=== PATIENT | female | born 1960 | race African-American/Black ===

== ENCOUNTER 2020-02-20 05:36 | Observation (INO) ==
[2020-02-20 06:04] LABS: Basophils # 0.1 10*3/uL (0.0-0.2); Basophils % 0.7 % (0.0-0.8); Eosinophils # 0.3 10*3/uL (0.0-0.87); Eosinophils % 3.5 % (0.00-10.9); Hematocrit 35.7 VOL% (35.7-47.0); Hemoglobin 11.1 GM/DL (12.0-16.0); Immature Granulocytes % 0.3 %; Immature Granulocytes Absolute 0.02 #; Lymphocytes # 1.9 10*3/uL (1.4-4.0); Lymphocytes % 26.8 % (21.3-54.2); Mean Corpuscular HGB Conc 31.1 GM/DL (32-36); Mean Platelet Volume 10.1 FL (9.6-12.0); Monocytes % 7.2 % (1.7-12.7); Neutrophils % 61.5 % (38.7-73.9); Platelet Count 226 T/CUMM (130-400); Red Blood Count 3.72 MC/CUMM (3.8-5.5); Red Cell Distribution Width 13.4 % (9.3-17.3); White Blood Count 7.1 T/CUMM (4-12)
[2020-02-20 06:14] LABS: PT Patient Result 10.8 SECS (9.8-11.9); Partial Thromboplastin Time 27.2 SECS (23.9-33.8)
[2020-02-20] MEDS ORDERED: hydrALAZINE 20 MG/1 ML VIAL IV STA (06:30)
[2020-02-20] MEDS ORDERED: FUROSEMIDE 40 MG/4 ML VIAL IV STA (06:30)
[2020-02-20 06:34] LABS: Albumin 2.9 G/DL (3.4-5.0); Bilirubin,Total 0.4 MG/DL (0.2-1.0); Calcium 8.2 MG/DL (8.5-10.1); Osmolality,Calculated 298.4 MOS/KG (273-304); Total Protein 6.6 G/DL (6.4-8.3)
[2020-02-20] MEDS ORDERED: GLUCAGON 1 MG VIAL IM PRN (08:17)
[2020-02-20] MEDS ORDERED: DEXTROSE 10% 250 ML BAG IV PRN ×2 (08:17→11:51)
[2020-02-20] MEDS ORDERED: ONDANSETRON 4 MG/2 ML VIAL IV PRN (08:17)
[2020-02-20] MEDS ORDERED: amLODIPine 5 MG TABLET PO SCH (09:00)
[2020-02-20] MEDS ORDERED: MAGNESIUM SULF RIDER 4 GM in PREMIX 1 EACH IV PRN (11:01)
[2020-02-20] MEDS ORDERED: MAGNESIUM SULF RIDER 2 GM in PREMIX 1 EACH IV PRN (11:01)
[2020-02-20] MEDS: carvediloL 25 MG TABLET PO SCH ×2 (11:17→22:09)
[2020-02-20] MEDS: ENALAPRIL 20 MG TABLET PO SCH (11:18)
[2020-02-20] MEDS: DOXAZOSIN 4 MG TABLET PO SCH (11:19)
[2020-02-20] MEDS: PANTOPRAZOLE 40 MG TABLET PO SCH (11:22)
[2020-02-20] MEDS ORDERED: DIGOXIN 0.25 MG TABLET PO SCH (13:00)
[2020-02-20] MEDS: INSULIN LISPRO 100 UNIT/ML SUBCUT SCH ×3 (13:21→20:46)
[2020-02-20 15:18] LABS: Apearance,Urine CLEAR (Clear); Bacteria,Urine Occasional /HPF (Few); Bilirubin,Urine Negative (Negative); Blood, Urine Small mg/dL (Negative); Glucose,Urine (UA) 50 mg/dL (Negative); Hyaline Casts,Urine 3 /LPF (0-3); Ketones,Urine Negative (Negative); Mucus,Urine Occasional /LPF (Occasional); Nitrite,Urine Positive (Negative); Protein,Urine 100 MG/DL; RBC,Urine 3 /HPF (0-4); Squamous Epithelial Cell,Urine Occasional /HPF (0-10); Urine Color Yellow (Yellow); Urine Specific Gravity 1.008 (1.001-1.035); Urine Urobilinogen < 2.0 EU/DL (0.2-1.0); WBC,Urine 17 /HPF (0-6)
[2020-02-20] MEDS: FUROSEMIDE 40 MG/4 ML VIAL IV SCH (16:44)
[2020-02-20] MEDS ORDERED: INSULIN GLARGINE 100 UNIT/ML SUBCUT SCH (21:00)
[2020-02-20] MEDS: SIMVASTATIN 40 MG TABLET PO SCH (22:09)
[2020-02-20] MEDS: INSULIN GLARGINE 100 UNIT/ML SUBCUT SCH (22:11)
[2020-02-21] MEDS: ZALEPLON 5 MG CAPSULE PO PRN (01:40)
[2020-02-21 05:23] LABS: Basophils % 0.5 % (0.0-0.8); Eosinophils # 0.2 10*3/uL (0.0-0.87); Eosinophils % 3.5 % (0.00-10.9); Hematocrit 31.9 VOL% (35.7-47.0); Hemoglobin 9.9 GM/DL (12.0-16.0); Immature Granulocytes % 0.3 %; Immature Granulocytes Absolute 0.02 #; Lymphocytes # 1.7 10*3/uL (1.4-4.0); Mean Corpuscular Volume 95.2 FL (87-102); Mean Platelet Volume 10.4 FL (9.6-12.0); Monocytes % 9.8 % (1.7-12.7); Neutrophils % 59.9 % (38.7-73.9); Platelet Count 211 T/CUMM (130-400); Red Blood Count 3.35 MC/CUMM (3.8-5.5); Red Cell Distribution Width 13.7 % (9.3-17.3); White Blood Count 6.6 T/CUMM (4-12)
[2020-02-21 05:48] LABS: Alanine Aminotransferase 42 U/L (13-56); Albumin 2.5 G/DL (3.4-5.0); Alkaline Phosphatase 110 U/L (45-117); Aspartate Amino Transferase 19 U/L (0-37); Bilirubin,Total < 0.39 MG/DL (0.2-1.0); Blood Urea Nitrogen 34 MG/DL (7-18); Estimated Glom Filtration Rate 69 ML/MIN; Glucose 84 MG/DL (74-106); Osmolality,Calculated 289.1 MOS/KG (273-304); Total Protein 6.3 G/DL (6.4-8.3)
[2020-02-21] MEDS: INSULIN LISPRO 100 UNIT/ML SUBCUT SCH ×4 (08:42→22:01)
[2020-02-21] MEDS: cefTRIAXone 1,000 MG in SYRINGE 1 EACH IV SCH (09:19)
[2020-02-21] MEDS: FUROSEMIDE 40 MG/4 ML VIAL IV SCH ×2 (09:24→16:31)
[2020-02-21] MEDS: amLODIPine 10 MG TABLET PO SCH (09:27)
[2020-02-21] MEDS: PANTOPRAZOLE 40 MG TABLET PO SCH (09:27)
[2020-02-21] MEDS: DOXAZOSIN 4 MG TABLET PO SCH (09:28)
[2020-02-21] MEDS: carvediloL 25 MG TABLET PO SCH ×2 (09:28→21:26)
[2020-02-21] MEDS: ENALAPRIL 20 MG TABLET PO SCH (09:28)
[2020-02-21] MEDS: SIMVASTATIN 40 MG TABLET PO SCH (21:26)
[2020-02-21] MEDS: INSULIN GLARGINE 100 UNIT/ML SUBCUT SCH (22:01)
[2020-02-22 05:20] LABS: Basophils % 0.5 % (0.0-0.8); Eosinophils # 0.3 10*3/uL (0.0-0.87); Eosinophils % 3.4 % (0.00-10.9); Hematocrit 32.6 VOL% (35.7-47.0); Hemoglobin 10.1 GM/DL (12.0-16.0); Immature Granulocytes % 0.3 %; Immature Granulocytes Absolute 0.02 #; Lymphocytes # 1.5 10*3/uL (1.4-4.0); Lymphocytes % 20.1 % (21.3-54.2); Mean Corpuscular Volume 97.6 FL (87-102); Mean Platelet Volume 10.3 FL (9.6-12.0); Monocytes % 9.2 % (1.7-12.7); Neutrophils % 66.5 % (38.7-73.9); Platelet Count 218 T/CUMM (130-400); Red Blood Count 3.34 MC/CUMM (3.8-5.5); Red Cell Distribution Width 13.6 % (9.3-17.3); White Blood Count 7.3 T/CUMM (4-12)
[2020-02-22 05:54] LABS: Albumin 2.6 G/DL (3.4-5.0); Bilirubin,Total 0.5 MG/DL (0.2-1.0); Calcium 8.4 MG/DL (8.5-10.1); Osmolality,Calculated 291.7 MOS/KG (273-304); Total Protein 6.6 G/DL (6.4-8.3)
[2020-02-22] MEDS: INSULIN LISPRO 100 UNIT/ML SUBCUT SCH ×4 (09:00→20:00)
[2020-02-22] MEDS: cefTRIAXone 1,000 MG in SYRINGE 1 EACH IV SCH (09:01)
[2020-02-22] MEDS: FUROSEMIDE 40 MG/4 ML VIAL IV SCH ×2 (09:06→16:31)
[2020-02-22] MEDS: amLODIPine 10 MG TABLET PO SCH (09:09)
[2020-02-22] MEDS: carvediloL 25 MG TABLET PO SCH ×2 (09:09→20:00)
[2020-02-22] MEDS: PANTOPRAZOLE 40 MG TABLET PO SCH (09:09)
[2020-02-22] MEDS: ENALAPRIL 20 MG TABLET PO SCH (09:09)
[2020-02-22] MEDS: DOXAZOSIN 4 MG TABLET PO SCH (09:09)
[2020-02-22] MEDS: SIMVASTATIN 40 MG TABLET PO SCH (20:00)
[2020-02-22] MEDS: INSULIN GLARGINE 100 UNIT/ML SUBCUT SCH (22:16)
[2020-02-23] MEDS: DOXAZOSIN 4 MG TABLET PO SCH (08:59)
[2020-02-23] MEDS: PANTOPRAZOLE 40 MG TABLET PO SCH (08:59)
[2020-02-23] MEDS: carvediloL 25 MG TABLET PO SCH ×2 (09:00→20:41)
[2020-02-23] MEDS: amLODIPine 10 MG TABLET PO SCH (09:00)
[2020-02-23] MEDS: ENALAPRIL 20 MG TABLET PO SCH (09:00)
[2020-02-23] MEDS: INSULIN LISPRO 100 UNIT/ML SUBCUT SCH ×4 (09:04→20:41)
[2020-02-23] MEDS: FUROSEMIDE 40 MG/4 ML VIAL IV SCH ×2 (09:05→16:06)
[2020-02-23] MEDS: cefTRIAXone 1,000 MG in SYRINGE 1 EACH IV SCH (09:09)
[2020-02-23] MEDS ORDERED: metOLazone 5 MG TABLET PO ONE (17:27)
[2020-02-23] MEDS: INSULIN GLARGINE 100 UNIT/ML SUBCUT SCH (20:41)
[2020-02-23] MEDS: SIMVASTATIN 40 MG TABLET PO SCH (20:41)
[2020-02-24] MEDS: ZALEPLON 5 MG CAPSULE PO PRN (00:25)
[2020-02-24 08:15] VITALS: BP 138/73
[2020-02-24] MEDS ORDERED: metOLazone 5 MG TABLET PO SCH (09:00)
[2020-02-24] MEDS: DOXAZOSIN 4 MG TABLET PO SCH (09:03)
[2020-02-24] MEDS: ENALAPRIL 20 MG TABLET PO SCH (09:03)
[2020-02-24] MEDS: amLODIPine 10 MG TABLET PO SCH (09:04)
[2020-02-24] MEDS: PANTOPRAZOLE 40 MG TABLET PO SCH (09:04)
[2020-02-24] MEDS: carvediloL 25 MG TABLET PO SCH (09:04)
[2020-02-24] MEDS: INSULIN LISPRO 100 UNIT/ML SUBCUT SCH (09:06)
[2020-02-24] MEDS: cefTRIAXone 1,000 MG in SYRINGE 1 EACH IV SCH (09:08)
[2020-02-24] MEDS: FUROSEMIDE 40 MG/4 ML VIAL IV SCH (09:14)
== END 2020-02-24 11:55 | disposition home or self-care (01) ==
LOC: N.ED 05:36 → N.EDINP 05:36 → SUATTDRO 08:15 → N.TELES 14:19
PROVIDERS: ADMIT Internal Medicine; ATTEND Hospitalist

== ENCOUNTER 2020-07-28 08:19 | Inpatient (IN) ==
[2020-07-28 09:31] LABS: Basophils # 0.1 10*3/uL (0.0-0.2); Basophils % 0.8 % (0.0-0.8); Eosinophils # 0.1 10*3/uL (0.0-0.87); Eosinophils % 0.6 % (0.00-10.9); Hematocrit 41.2 VOL% (35.7-47.0); Hemoglobin 13.9 GM/DL (12.0-16.0); Immature Granulocytes % 0.5 %; Immature Granulocytes Absolute 0.04 #; Lymphocytes # 1.4 10*3/uL (1.4-4.0); Lymphocytes % 15.4 % (21.3-54.2); Mean Corpuscular HGB Conc 33.7 GM/DL (32-36); Mean Corpuscular Volume 90.5 FL (87-102); Mean Platelet Volume 10.9 FL (9.6-12.0); Monocytes % 9.2 % (1.7-12.7); Neutrophils % 73.5 % (38.7-73.9); Platelet Count 187 T/CUMM (130-400); Red Blood Count 4.55 MC/CUMM (3.8-5.5); Red Cell Distribution Width 13.1 % (9.3-17.3); White Blood Count 8.8 T/CUMM (4-12)
[2020-07-28 10:41] LABS: Albumin 3.7 G/DL (3.4-5.0); Bilirubin,Total 0.4 MG/DL (0.2-1.0); Calcium 9.4 MG/DL (8.5-10.1); Osmolality,Calculated 303.2 MOS/KG (273-304); Total Protein 8.4 G/DL (6.4-8.3)
[2020-07-28 11:06] LABS: Bilirubin,Urine Negative (Negative); Blood, Urine Negative (Negative); Glucose,Urine (UA) >=500 mg/dL (Negative); Hyaline Casts,Urine 22 /LPF (0-3); Ketones,Urine 5 mg/dL (Negative); Nitrite,Urine Negative (Negative); Protein,Urine Negative; RBC,Urine 1 /HPF (0-4); Squamous Epithelial Cell,Urine Occasional /HPF (0-10); Urine Appearance Slightly Hazy (Clear); Urine Color Yellow (Yellow); Urine Specific Gravity 1.009 (1.001-1.035); Urine Urobilinogen < 2.0 EU/DL (0.2-1.0); WBC,Urine 13 /HPF (0-6)
[2020-07-28] MEDS ORDERED: ENOXAPARIN 100 MG/ML SYRINGE SUBCUT STA (11:06)
[2020-07-28] MEDS ORDERED: hydrALAZINE 20 MG/1 ML VIAL IV PRN (11:52)
[2020-07-28] MEDS ORDERED: GLUCAGON 1 MG VIAL IM PRN ×2 (11:52→16:16)
[2020-07-28] MEDS ORDERED: ONDANSETRON 4 MG/2 ML VIAL IV PRN (11:52)
[2020-07-28] MEDS ORDERED: DEXTROSE 50% 25 GM/50 ML VIAL IV PRN ×2 (11:52→16:16)
[2020-07-28] MEDS ORDERED: DOCUSATE SODIUM 100 MG CAPSULE PO PRN (11:52)
[2020-07-28 12:41] LABS: Risk Ratio 3.27; VLDL CHOLESTEROL 34.8 MG/DL
[2020-07-28] MEDS: ALBUTEROL 2.5 MG/3 ML NEB RESP TX SCH ×2 (13:13→19:18)
[2020-07-28] MEDS ORDERED: PNEUMOCOCCAL VACCINE (23 VALENT) 0.5 ML VIAL IM ONE (15:03)
[2020-07-28] MEDS: INSULIN LISPRO 100 UNIT/ML SUBCUT SCH ×2 (16:56→21:25)
[2020-07-28] MEDS: SODIUM CHLORIDE 0.9% 1,000 ML IV SCH (18:15)
[2020-07-28] MEDS ORDERED: HEPARIN DRIP 25,000 UNITS/500 ML PREMIX IV SCH (19:00)
[2020-07-28] MEDS ORDERED: INSULIN GLARGINE 100 UNIT/ML SUBCUT SCH (21:00)
[2020-07-28] MEDS: amLODIPine 5 MG TABLET PO SCH (21:24)
[2020-07-28] MEDS: SIMVASTATIN 40 MG TABLET PO SCH (21:25)
[2020-07-28] MEDS: INSULIN GLARGINE 100 UNIT/ML SUBCUT SCH (21:25)
[2020-07-29] MEDS: ALBUTEROL 2.5 MG/3 ML NEB RESP TX SCH ×4 (01:01→19:14)
[2020-07-29] MEDS: SODIUM CHLORIDE 0.9% 1,000 ML IV SCH (04:21)
[2020-07-29] MEDS: INSULIN LISPRO 100 UNIT/ML SUBCUT SCH ×4 (08:12→21:28)
[2020-07-29 08:40] LABS: Basophils # 0.1 10*3/uL (0.0-0.2); Basophils % 0.9 % (0.0-0.8); Eosinophils # 0.4 10*3/uL (0.0-0.87); Eosinophils % 4.6 % (0.00-10.9); Hematocrit 35.4 VOL% (35.7-47.0); Hemoglobin 12.1 GM/DL (12.0-16.0); Immature Granulocytes % 0.4 %; Immature Granulocytes Absolute 0.03 #; Lymphocytes # 2.2 10*3/uL (1.4-4.0); Lymphocytes % 26.1 % (21.3-54.2); Mean Corpuscular HGB Conc 34.2 GM/DL (32-36); Mean Corpuscular Volume 89.8 FL (87-102); Mean Platelet Volume 11.8 FL (9.6-12.0); Monocytes % 10.2 % (1.7-12.7); Neutrophils % 57.8 % (38.7-73.9); Red Blood Count 3.94 MC/CUMM (3.8-5.5); Red Cell Distribution Width 13.2 % (9.3-17.3); White Blood Count 8.5 T/CUMM (4-12)
[2020-07-29 08:42] LABS: Platelet Count 105 T/CUMM (130-400)
[2020-07-29] MEDS: amLODIPine 5 MG TABLET PO SCH ×2 (08:47→21:26)
[2020-07-29] MEDS: PANTOPRAZOLE 40 MG TABLET PO SCH (08:48)
[2020-07-29 08:51] LABS: Hypochromasia 1+
[2020-07-29 08:52] LABS: Platelet Estimate Decreased
[2020-07-29] MEDS ORDERED: EPLERENONE 25 MG TABLET PO SCH (09:00)
[2020-07-29 09:39] LABS: Calcium 9.1 MG/DL (8.5-10.1); Osmolality,Calculated 295.8 MOS/KG (273-304)
[2020-07-29] MEDS: APIXABAN 5 MG TABLET PO SCH ×2 (11:08→21:26)
[2020-07-29] MEDS: FUROSEMIDE 20 MG/2 ML VIAL IV SCH (16:58)
[2020-07-29] MEDS: AZITHROMYCIN 250 MG TABLET PO SCH (17:01)
[2020-07-29] MEDS: cefTRIAXone 1,000 MG in SYRINGE 1 EACH IV SCH (17:01)
[2020-07-29] MEDS: SIMVASTATIN 40 MG TABLET PO SCH (21:25)
[2020-07-29] MEDS: INSULIN GLARGINE 100 UNIT/ML SUBCUT SCH (21:27)
[2020-07-30] MEDS: ALBUTEROL 2.5 MG/3 ML NEB RESP TX SCH ×4 (01:32→19:09)
[2020-07-30] MEDS: ACETAMINOPHEN 325 MG TABLET PO PRN (04:28)
[2020-07-30 05:20] LABS: Basophils # 0.1 10*3/uL (0.0-0.2); Basophils % 0.8 % (0.0-0.8); Eosinophils # 0.3 10*3/uL (0.0-0.87); Eosinophils % 3.6 % (0.00-10.9); Hematocrit 37.3 VOL% (35.7-47.0); Immature Granulocytes % 0.3 %; Immature Granulocytes Absolute 0.02 #; Lymphocytes # 1.6 10*3/uL (1.4-4.0); Lymphocytes % 21.3 % (21.3-54.2); Mean Corpuscular HGB Conc 32.2 GM/DL (32-36); Mean Platelet Volume 10.3 FL (9.6-12.0); Monocytes % 13.4 % (1.7-12.7); Neutrophils % 60.6 % (38.7-73.9); Platelet Count 169 T/CUMM (130-400); Red Blood Count 3.97 MC/CUMM (3.8-5.5); Red Cell Distribution Width 13.6 % (9.3-17.3); White Blood Count 7.5 T/CUMM (4-12)
[2020-07-30 05:38] LABS: Calcium 8.6 MG/DL (8.5-10.1); Osmolality,Calculated 301.4 MOS/KG (273-304); Osmolality,Calculated 302.2 MOS/KG (273-304)
[2020-07-30] MEDS ORDERED: SODIUM CHLORIDE 0.9% 500 ML IV ONE (08:11)
[2020-07-30] MEDS ORDERED: BUTALBITAL/ACETAMIN/CAFFEINE 50-325-40 MG TABLET PO PRN (08:15)
[2020-07-30] MEDS ORDERED: MORPHINE 4 MG/1 ML VIAL IV ONE (08:16)
[2020-07-30] MEDS: APIXABAN 5 MG TABLET PO SCH ×2 (09:10→20:27)
[2020-07-30] MEDS: GABAPENTIN 100 MG CAPSULE PO SCH ×3 (09:10→20:27)
[2020-07-30] MEDS: PANTOPRAZOLE 40 MG TABLET PO SCH (09:11)
[2020-07-30] MEDS: AZITHROMYCIN 250 MG TABLET PO SCH (09:11)
[2020-07-30] MEDS: amLODIPine 5 MG TABLET PO SCH (09:11)
[2020-07-30] MEDS: INSULIN LISPRO 100 UNIT/ML SUBCUT SCH ×4 (09:40→20:29)
[2020-07-30] MEDS: FUROSEMIDE 20 MG/2 ML VIAL IV SCH (10:28)
[2020-07-30] MEDS ORDERED: amLODIPine 5 MG TABLET PO ONE (11:33)
[2020-07-30] MEDS: SODIUM CHLORIDE 0.9% 1,000 ML IV SCH (12:46)
[2020-07-30] MEDS: cefTRIAXone 1,000 MG in SYRINGE 1 EACH IV SCH (16:10)
[2020-07-30] MEDS: hydrALAZINE 25 MG TABLET PO SCH ×2 (16:10→20:32)
[2020-07-30] MEDS: guaiFENesin/DM ER 600-30 MG TABLET PO PRN (16:11)
[2020-07-30] MEDS: SIMVASTATIN 40 MG TABLET PO SCH (20:28)
[2020-07-30] MEDS: INSULIN GLARGINE 100 UNIT/ML SUBCUT SCH (20:29)
[2020-07-31] MEDS: SODIUM CHLORIDE 0.9% 1,000 ML IV SCH ×3 (00:50→21:11)
[2020-07-31] MEDS: ALBUTEROL 2.5 MG/3 ML NEB RESP TX SCH ×4 (01:20→19:51)
[2020-07-31 05:46] LABS: Basophils # 0.1 10*3/uL (0.0-0.2); Eosinophils # 0.5 10*3/uL (0.0-0.87); Eosinophils % 5.7 % (0.00-10.9); Hemoglobin 11.7 GM/DL (12.0-16.0); Immature Granulocytes % 0.5 %; Immature Granulocytes Absolute 0.04 #; Lymphocytes # 2.3 10*3/uL (1.4-4.0); Lymphocytes % 27.9 % (21.3-54.2); Mean Corpuscular HGB Conc 33.4 GM/DL (32-36); Mean Corpuscular Volume 92.3 FL (87-102); Mean Platelet Volume 10.2 FL (9.6-12.0); Monocytes % 11.2 % (1.7-12.7); Neutrophils % 53.7 % (38.7-73.9); Platelet Count 201 T/CUMM (130-400); Red Blood Count 3.79 MC/CUMM (3.8-5.5); Red Cell Distribution Width 13.7 % (9.3-17.3); White Blood Count 8.1 T/CUMM (4-12)
[2020-07-31 06:39] LABS: Calcium 8.7 MG/DL (8.5-10.1); Osmolality,Calculated 306.5 MOS/KG (273-304)
[2020-07-31 06:40] LABS: Calcium 8.7 MG/DL (8.5-10.1); Osmolality,Calculated 304.7 MOS/KG (273-304)
[2020-07-31] MEDS: INSULIN LISPRO 100 UNIT/ML SUBCUT SCH ×4 (09:07→21:09)
[2020-07-31] MEDS: AZITHROMYCIN 250 MG TABLET PO SCH (09:09)
[2020-07-31] MEDS: APIXABAN 5 MG TABLET PO SCH ×2 (09:09→21:06)
[2020-07-31] MEDS: ISOSORBIDE MONONITRATE 30 MG TABLET PO SCH (09:09)
[2020-07-31] MEDS: GABAPENTIN 100 MG CAPSULE PO SCH ×2 (09:10→15:06)
[2020-07-31] MEDS: amLODIPine 10 MG TABLET PO SCH (09:10)
[2020-07-31] MEDS: PANTOPRAZOLE 40 MG TABLET PO SCH (09:10)
[2020-07-31] MEDS: INSULIN GLARGINE 100 UNIT/ML SUBCUT SCH ×2 (09:11→21:10)
[2020-07-31] MEDS: guaiFENesin/DM ER 600-30 MG TABLET PO PRN (09:16)
[2020-07-31] MEDS: cefTRIAXone 1,000 MG in SYRINGE 1 EACH IV SCH (15:07)
[2020-07-31] MEDS: AMITRIPTYLINE 25 MG TABLET PO SCH (21:07)
[2020-07-31] MEDS: SIMVASTATIN 40 MG TABLET PO SCH (21:07)
[2020-08-01] MEDS: ALBUTEROL 2.5 MG/3 ML NEB RESP TX SCH ×4 (00:21→20:15)
[2020-08-01 05:21] LABS: Basophils # 0.1 10*3/uL (0.0-0.2); Basophils % 0.9 % (0.0-0.8); Eosinophils # 0.4 10*3/uL (0.0-0.87); Eosinophils % 4.7 % (0.00-10.9); Hematocrit 34.3 VOL% (35.7-47.0); Immature Granulocytes % 0.4 %; Immature Granulocytes Absolute 0.03 #; Lymphocytes # 2.5 10*3/uL (1.4-4.0); Lymphocytes % 28.9 % (21.3-54.2); Mean Corpuscular HGB Conc 32.1 GM/DL (32-36); Mean Platelet Volume 10.4 FL (9.6-12.0); Monocytes % 9.5 % (1.7-12.7); Neutrophils % 55.6 % (38.7-73.9); Platelet Count 194 T/CUMM (130-400); Red Blood Count 3.61 MC/CUMM (3.8-5.5); White Blood Count 8.6 T/CUMM (4-12)
[2020-08-01 05:49] LABS: Calcium 8.7 MG/DL (8.5-10.1); Calcium 8.8 MG/DL (8.5-10.1); Osmolality,Calculated 302.4 MOS/KG (273-304); Osmolality,Calculated 304.3 MOS/KG (273-304)
[2020-08-01] MEDS: ACETAMINOPHEN 325 MG TABLET PO PRN (07:15)
[2020-08-01] MEDS: ISOSORBIDE MONONITRATE 30 MG TABLET PO SCH (08:21)
[2020-08-01] MEDS: PANTOPRAZOLE 40 MG TABLET PO SCH (08:21)
[2020-08-01] MEDS: AZITHROMYCIN 250 MG TABLET PO SCH (08:21)
[2020-08-01] MEDS: APIXABAN 5 MG TABLET PO SCH ×2 (08:21→20:49)
[2020-08-01] MEDS: amLODIPine 10 MG TABLET PO SCH (08:22)
[2020-08-01] MEDS: INSULIN LISPRO 100 UNIT/ML SUBCUT SCH ×4 (08:22→20:49)
[2020-08-01] MEDS: INSULIN GLARGINE 100 UNIT/ML SUBCUT SCH ×2 (08:23→20:49)
[2020-08-01] MEDS: SODIUM CHLORIDE 0.9% 1,000 ML IV SCH (12:11)
[2020-08-01] MEDS: ASPIRIN CHEW 81 MG TABLET PO SCH (15:50)
[2020-08-01] MEDS: cefTRIAXone 1,000 MG in SYRINGE 1 EACH IV SCH (15:51)
[2020-08-01] MEDS: AMITRIPTYLINE 25 MG TABLET PO SCH (20:48)
[2020-08-01] MEDS: SIMVASTATIN 40 MG TABLET PO SCH (20:49)
[2020-08-02] MEDS: ALBUTEROL 2.5 MG/3 ML NEB RESP TX SCH ×4 (00:27→19:12)
[2020-08-02] MEDS: SODIUM CHLORIDE 0.9% 1,000 ML IV SCH ×2 (02:02→16:16)
[2020-08-02 05:47] LABS: Basophils # 0.1 10*3/uL (0.0-0.2); Basophils % 0.9 % (0.0-0.8); Eosinophils # 0.4 10*3/uL (0.0-0.87); Eosinophils % 5.2 % (0.00-10.9); Hematocrit 31.5 VOL% (35.7-47.0); Hemoglobin 10.4 GM/DL (12.0-16.0); Immature Granulocytes % 0.4 %; Immature Granulocytes Absolute 0.03 #; Lymphocytes # 2.2 10*3/uL (1.4-4.0); Lymphocytes % 28.3 % (21.3-54.2); Mean Corpuscular Volume 94.9 FL (87-102); Mean Platelet Volume 10.5 FL (9.6-12.0); Monocytes % 10.5 % (1.7-12.7); Neutrophils % 54.7 % (38.7-73.9); Platelet Count 193 T/CUMM (130-400); Red Blood Count 3.32 MC/CUMM (3.8-5.5); Red Cell Distribution Width 14.5 % (9.3-17.3); White Blood Count 7.9 T/CUMM (4-12)
[2020-08-02 06:03] LABS: Calcium 8.6 MG/DL (8.5-10.1)
[2020-08-02] MEDS: INSULIN LISPRO 100 UNIT/ML SUBCUT SCH ×4 (10:59→21:37)
[2020-08-02] MEDS: ASPIRIN CHEW 81 MG TABLET PO SCH (11:00)
[2020-08-02] MEDS: APIXABAN 5 MG TABLET PO SCH ×2 (11:00→21:30)
[2020-08-02] MEDS: ISOSORBIDE MONONITRATE 30 MG TABLET PO SCH (11:00)
[2020-08-02] MEDS: amLODIPine 10 MG TABLET PO SCH (11:00)
[2020-08-02] MEDS: AZITHROMYCIN 250 MG TABLET PO SCH (11:01)
[2020-08-02] MEDS: PANTOPRAZOLE 40 MG TABLET PO SCH (11:01)
[2020-08-02] MEDS: INSULIN GLARGINE 100 UNIT/ML SUBCUT SCH ×2 (11:01→21:37)
[2020-08-02] MEDS: AMITRIPTYLINE 25 MG TABLET PO SCH (21:30)
[2020-08-02] MEDS: SIMVASTATIN 40 MG TABLET PO SCH (21:30)
[2020-08-03] MEDS: ALBUTEROL 2.5 MG/3 ML NEB RESP TX SCH ×4 (02:26→19:18)
[2020-08-03] MEDS: SODIUM CHLORIDE 0.9% 1,000 ML IV SCH (04:50)
[2020-08-03] MEDS: PANTOPRAZOLE 40 MG TABLET PO SCH (09:21)
[2020-08-03] MEDS: ISOSORBIDE MONONITRATE 30 MG TABLET PO SCH (09:21)
[2020-08-03] MEDS: APIXABAN 5 MG TABLET PO SCH ×2 (09:21→21:45)
[2020-08-03] MEDS: SULFAMETHOX/TRIMETHOPRIM 800-160 MG TABLET PO SCH (09:21)
[2020-08-03] MEDS: ASPIRIN CHEW 81 MG TABLET PO SCH (09:21)
[2020-08-03] MEDS: INSULIN LISPRO 100 UNIT/ML SUBCUT SCH ×4 (09:46→22:08)
[2020-08-03] MEDS: INSULIN GLARGINE 100 UNIT/ML SUBCUT SCH ×2 (09:47→22:08)
[2020-08-03] MEDS ORDERED: FUROSEMIDE 40 MG/4 ML VIAL IV SCH (10:00)
[2020-08-03] MEDS ORDERED: LOSARTAN 25 MG TABLET PO SCH (10:00)
[2020-08-03] MEDS: amLODIPine 10 MG TABLET PO SCH (14:05)
[2020-08-03] MEDS: FUROSEMIDE 40 MG TABLET PO SCH (14:30)
[2020-08-03] MEDS: SIMVASTATIN 40 MG TABLET PO SCH (21:45)
[2020-08-03] MEDS: AMITRIPTYLINE 25 MG TABLET PO SCH (21:45)
[2020-08-03] MEDS: carvediloL 6.25 MG TABLET PO SCH (21:45)
[2020-08-04] MEDS: ALBUTEROL 2.5 MG/3 ML NEB RESP TX SCH ×2 (01:28→07:07)
[2020-08-04] MEDS: INSULIN LISPRO 100 UNIT/ML SUBCUT SCH (08:25)
[2020-08-04] MEDS: ASPIRIN CHEW 81 MG TABLET PO SCH (09:59)
[2020-08-04] MEDS: INSULIN GLARGINE 100 UNIT/ML SUBCUT SCH (09:59)
[2020-08-04] MEDS: APIXABAN 5 MG TABLET PO SCH (09:59)
[2020-08-04] MEDS: SULFAMETHOX/TRIMETHOPRIM 800-160 MG TABLET PO SCH (09:59)
[2020-08-04] MEDS: ISOSORBIDE MONONITRATE 30 MG TABLET PO SCH (10:00)
[2020-08-04] MEDS: FUROSEMIDE 40 MG TABLET PO SCH (10:00)
[2020-08-04] MEDS: carvediloL 6.25 MG TABLET PO SCH (10:35)
[2020-08-04] MEDS: PANTOPRAZOLE 40 MG TABLET PO SCH (10:35)
[2020-08-04 15:54] VITALS: BP 148/82
== END 2020-08-04 15:48 | disposition home health service (06) | DRG 299 ==
LOC: N.ED 08:19 → N.EDINP 11:52 → SUATTDRO 11:52 → N.EDINP 14:47 → N.TELEN 15:36
PROVIDERS: ADMIT Internal Medicine; ATTEND Emergency Medicine

== ENCOUNTER 2021-02-19 16:01 | Inpatient (IN) ==
[2021-02-19 17:58] LABS: Basophils % 0.2 % (0.0-0.8); Eosinophils # 0.2 10*3/uL (0.0-0.87); Eosinophils % 2.3 % (0.00-10.9); Hematocrit 24.4 VOL% (35.7-47.0); Hemoglobin 7.5 GM/DL (12.0-16.0); Immature Granulocytes % 0.5 %; Immature Granulocytes Absolute 0.04 #; Lymphocytes # 0.9 10*3/uL (1.4-4.0); Lymphocytes % 10.5 % (21.3-54.2); Mean Corpuscular HGB Conc 30.7 GM/DL (32-36); Mean Corpuscular Volume 85.9 FL (87-102); Mean Platelet Volume 9.2 FL (9.6-12.0); Monocytes % 8.9 % (1.7-12.7); Neutrophils % 77.6 % (38.7-73.9); Platelet Count 326 T/CUMM (130-400); Red Blood Count 2.84 MC/CUMM (3.8-5.5); Red Cell Distribution Width 14.7 % (9.3-17.3); White Blood Count 8.1 T/CUMM (4-12)
[2021-02-19 18:22] LABS: Alanine Aminotransferase 15 U/L (13-56); Albumin 3.3 G/DL (3.4-5.0); Alkaline Phosphatase 98 U/L (45-117); Aspartate Amino Transferase 15 U/L (0-37); Bilirubin,Total < 0.39 MG/DL (0.2-1.0); Blood Urea Nitrogen 53 MG/DL (7-18); Carbon Dioxide 25 MMOL/L (21-32); Estimated Glom Filtration Rate 18 ML/MIN; Glucose 146 MG/DL (74-106); Osmolality,Calculated 282.4 MOS/KG (273-304); Potassium 4.9 MMOL/L (3.5-5.1); Sodium 133 MMOL/L (136-145); Total Protein 7.2 G/DL (6.4-8.2)
[2021-02-19 18:34] LABS: Thyroid Stimulating Hormone 1.52 uIU/ml (0.358-3.74)
[2021-02-19 18:59] LABS: Bacteria,Urine Occasional /HPF (Few); Bilirubin,Urine Negative (Negative); Blood, Urine Negative (Negative); Glucose,Urine (UA) Negative (Negative); Hyaline Casts,Urine 6 /LPF (0-3); Ketones,Urine Negative (Negative); Mucus,Urine Occasional /LPF (Occasional); Nitrite,Urine Negative (Negative); Protein,Urine Negative; Squamous Epithelial Cell,Urine Occasional /HPF (0-10); Urine Appearance CLEAR (Clear); Urine Color Yellow (Yellow); Urine Specific Gravity 1.008 (1.001-1.035); Urine Urobilinogen < 2.0 EU/DL (0.2-1.0)
[2021-02-19] MEDS ORDERED: SODIUM CHLORIDE 0.9% 1,000 ML IV PRN (21:17)
[2021-02-19] MEDS ORDERED: DEXTROSE 50% 25 GM/50 ML VIAL IV PRN (21:19)
[2021-02-19] MEDS ORDERED: GLUCAGON 1 MG VIAL IM PRN (21:19)
[2021-02-19] MEDS ORDERED: ACETAMINOPHEN 325 MG TABLET PO PRN (21:20)
[2021-02-19] MEDS ORDERED: ONDANSETRON 4 MG/2 ML VIAL IV PRN (21:20)
[2021-02-19 21:30] LABS: INR 1.1; PT Patient Result 12.6 SECS (10.5-12.0)
[2021-02-19] MEDS: INSULIN GLARGINE 100 UNIT/ML SUBCUT SCH (22:32)
[2021-02-19] MEDS: SIMVASTATIN 40 MG TABLET PO SCH (22:32)
[2021-02-19] MEDS: carvediloL 25 MG TABLET PO SCH (22:32)
[2021-02-20 07:51] LABS: Basophils % 0.4 % (0.0-0.8); Eosinophils # 0.4 10*3/uL (0.0-0.87); Eosinophils % 4.8 % (0.00-10.9); Hematocrit 27.6 VOL% (35.7-47.0); Hemoglobin 8.8 GM/DL (12.0-16.0); Immature Granulocytes % 0.6 %; Immature Granulocytes Absolute 0.05 #; Lymphocytes % 12.6 % (21.3-54.2); Mean Corpuscular HGB Conc 31.9 GM/DL (32-36); Mean Corpuscular Volume 84.9 FL (87-102); Mean Platelet Volume 8.9 FL (9.6-12.0); Monocytes % 8.7 % (1.7-12.7); Neutrophils % 72.9 % (38.7-73.9); Platelet Count 286 T/CUMM (130-400); Red Blood Count 3.25 MC/CUMM (3.8-5.5); Red Cell Distribution Width 14.5 % (9.3-17.3); White Blood Count 7.7 T/CUMM (4-12)
[2021-02-20 08:20] LABS: Albumin 2.8 G/DL (3.4-5.0); Bilirubin,Total 0.6 MG/DL (0.2-1.0); Osmolality,Calculated 283.1 MOS/KG (273-304); Potassium 4.4 MMOL/L (3.5-5.1); Total Protein 7.1 G/DL (6.4-8.2)
[2021-02-20] MEDS ORDERED: PANTOPRAZOLE 40 MG VIAL IV SCH (09:00)
[2021-02-20 09:49] LABS: Calcium 9.1 MG/DL (8.5-10.1); Osmolality,Calculated 284.1 MOS/KG (273-304); Potassium 4.5 MMOL/L (3.5-5.1)
[2021-02-20] MEDS: INSULIN LISPRO 100 UNIT/ML SUBCUT SCH ×4 (10:06→21:35)
[2021-02-20] MEDS: carvediloL 25 MG TABLET PO SCH ×2 (10:07→21:34)
[2021-02-20] MEDS: DOXAZOSIN 4 MG TABLET PO SCH (10:07)
[2021-02-20] MEDS: ISOSORBIDE MONONITRATE 30 MG TABLET PO SCH (10:07)
[2021-02-20 13:39] LABS: Ferritin 5.8 ng/ml (8-252)
[2021-02-20 14:12] LABS: Hematocrit 28.7 VOL% (35.7-47.0)
[2021-02-20] MEDS: SODIUM CHLORIDE 0.9% 1,000 ML IV SCH ×2 (15:05→17:20)
[2021-02-20 19:04] LABS: Bilirubin,Urine Negative (Negative); Blood, Urine Negative (Negative); Glucose,Urine (UA) Negative (Negative); Hyaline Casts,Urine 6 /LPF (0-3); Ketones,Urine Negative (Negative); Mucus,Urine Occasional /LPF (Occasional); Nitrite,Urine Negative (Negative); Protein,Urine Negative; RBC,Urine 6 /HPF (0-4); Squamous Epithelial Cell,Urine Occasional /HPF (0-10); Urine Appearance CLEAR (Clear); Urine Color Yellow (Yellow); Urine Urobilinogen < 2.0 EU/DL (0.2-1.0)
[2021-02-20] MEDS: PANTOPRAZOLE 40 MG VIAL IV SCH (21:34)
[2021-02-20] MEDS: SIMVASTATIN 40 MG TABLET PO SCH (21:34)
[2021-02-20] MEDS: INSULIN GLARGINE 100 UNIT/ML SUBCUT SCH (21:35)
[2021-02-20 22:27] LABS: Hematocrit 26.1 VOL% (35.7-47.0); Hemoglobin 8.3 GM/DL (12.0-16.0)
[2021-02-21] MEDS: SODIUM CHLORIDE 0.9% 1,000 ML IV SCH ×3 (05:20→19:42)
[2021-02-21] MEDS: INSULIN LISPRO 100 UNIT/ML SUBCUT SCH ×4 (07:32→21:13)
[2021-02-21 07:35] LABS: Basophils % 0.1 % (0.0-0.8); Eosinophils # 0.5 10*3/uL (0.0-0.87); Eosinophils % 6.3 % (0.00-10.9); Hemoglobin 8.5 GM/DL (12.0-16.0); Immature Granulocytes % 0.3 %; Immature Granulocytes Absolute 0.02 #; Lymphocytes # 1.4 10*3/uL (1.4-4.0); Lymphocytes % 20.2 % (21.3-54.2); Mean Corpuscular HGB Conc 32.7 GM/DL (32-36); Mean Corpuscular Volume 84.1 FL (87-102); Mean Platelet Volume 8.7 FL (9.6-12.0); Monocytes % 8.4 % (1.7-12.7); Neutrophils % 64.7 % (38.7-73.9); Platelet Count 265 T/CUMM (130-400); Red Blood Count 3.09 MC/CUMM (3.8-5.5); Red Cell Distribution Width 14.4 % (9.3-17.3); White Blood Count 7.1 T/CUMM (4-12)
[2021-02-21 08:13] LABS: Alanine Aminotransferase 11 U/L (13-56); Albumin 2.5 G/DL (3.4-5.0); Alkaline Phosphatase 88 U/L (45-117); Aspartate Amino Transferase 13 U/L (0-37); Bilirubin,Total < 0.39 MG/DL (0.2-1.0); Blood Urea Nitrogen 48 MG/DL (7-18); Calcium 8.2 MG/DL (8.5-10.1); Carbon Dioxide 25 MMOL/L (21-32); Estimated Glom Filtration Rate 24 ML/MIN; Glucose 116 MG/DL (74-106); Osmolality,Calculated 283.1 MOS/KG (273-304); Sodium 135 MMOL/L (136-145); Total Protein 6.4 G/DL (6.4-8.2)
[2021-02-21] MEDS: carvediloL 25 MG TABLET PO SCH ×2 (08:48→21:11)
[2021-02-21] MEDS: ISOSORBIDE MONONITRATE 30 MG TABLET PO SCH (08:48)
[2021-02-21] MEDS: DOXAZOSIN 4 MG TABLET PO SCH (08:48)
[2021-02-21] MEDS: PANTOPRAZOLE 40 MG VIAL IV SCH ×2 (08:49→21:14)
[2021-02-21] MEDS ORDERED: ERGOCALCIFEROL 50,000 UNIT CAPSULE PO SCH (11:00)
[2021-02-21] MEDS ORDERED: LIDOCAINE 2% 5 ML VIAL ONE (11:21)
[2021-02-21] MEDS ORDERED: propofoL 200 MG/20 ML VIAL IV ONE (11:21)
[2021-02-21] MEDS ORDERED: SKIN HEALING OINT (AQUAPHOR) 50 GM TUBE TOP PRN (14:25)
[2021-02-21] MEDS ORDERED: POLYETHYLENE GLYCOL POWDER 255 GM BOTTLE PO ONE (15:00)
[2021-02-21] MEDS: SIMVASTATIN 40 MG TABLET PO SCH (21:11)
[2021-02-21] MEDS: INSULIN GLARGINE 100 UNIT/ML SUBCUT SCH (21:13)
[2021-02-22] MEDS ORDERED: POLYETHYLENE GLYCOL POWDER 255 GM BOTTLE PO ONE (05:00)
[2021-02-22 06:24] LABS: Basophils % 0.6 % (0.0-0.8); Eosinophils # 0.5 10*3/uL (0.0-0.87); Eosinophils % 7.3 % (0.00-10.9); Hematocrit 28.9 VOL% (35.7-47.0); Hemoglobin 8.7 GM/DL (12.0-16.0); Immature Granulocytes % 0.3 %; Immature Granulocytes Absolute 0.02 #; Lymphocytes # 1.2 10*3/uL (1.4-4.0); Lymphocytes % 17.7 % (21.3-54.2); Mean Corpuscular HGB Conc 30.1 GM/DL (32-36); Mean Corpuscular Volume 89.2 FL (87-102); Mean Platelet Volume 9.1 FL (9.6-12.0); Monocytes % 8.3 % (1.7-12.7); Neutrophils % 65.8 % (38.7-73.9); Platelet Count 295 T/CUMM (130-400); Red Blood Count 3.24 MC/CUMM (3.8-5.5); Red Cell Distribution Width 14.3 % (9.3-17.3)
[2021-02-22 06:40] LABS: Calcium 8.3 MG/DL (8.5-10.1); Osmolality,Calculated 290.7 MOS/KG (273-304); Potassium 4.2 MMOL/L (3.5-5.1)
[2021-02-22] MEDS: PANTOPRAZOLE 40 MG VIAL IV SCH ×2 (08:12→21:32)
[2021-02-22] MEDS: ISOSORBIDE MONONITRATE 30 MG TABLET PO SCH (08:12)
[2021-02-22] MEDS: carvediloL 25 MG TABLET PO SCH ×2 (08:12→21:18)
[2021-02-22] MEDS: DOXAZOSIN 4 MG TABLET PO SCH (08:12)
[2021-02-22] MEDS: INSULIN LISPRO 100 UNIT/ML SUBCUT SCH ×4 (08:15→21:18)
[2021-02-22] MEDS: SODIUM CHLORIDE 0.9% 1,000 ML IV SCH ×3 (08:58→21:30)
[2021-02-22] MEDS: INSULIN GLARGINE 100 UNIT/ML SUBCUT SCH (21:18)
[2021-02-22] MEDS: SIMVASTATIN 40 MG TABLET PO SCH (21:23)
[2021-02-23 05:49] LABS: Basophils % 0.2 % (0.0-0.8); Eosinophils # 0.5 10*3/uL (0.0-0.87); Hematocrit 26.7 VOL% (35.7-47.0); Immature Granulocytes % 0.5 %; Immature Granulocytes Absolute 0.04 #; Lymphocytes # 1.4 10*3/uL (1.4-4.0); Lymphocytes % 15.8 % (21.3-54.2); Mean Platelet Volume 9.2 FL (9.6-12.0); Monocytes % 8.2 % (1.7-12.7); Neutrophils % 69.3 % (38.7-73.9); Platelet Count 293 T/CUMM (130-400); Red Cell Distribution Width 14.5 % (9.3-17.3); White Blood Count 8.6 T/CUMM (4-12)
[2021-02-23 07:47] LABS: Calcium 7.8 MG/DL (8.5-10.1); Osmolality,Calculated 295.4 MOS/KG (273-304); Potassium 4.5 MMOL/L (3.5-5.1)
[2021-02-23 08:18] VITALS: BP 137/56
[2021-02-23] MEDS: INSULIN LISPRO 100 UNIT/ML SUBCUT SCH ×2 (10:31→11:43)
[2021-02-23] MEDS: carvediloL 25 MG TABLET PO SCH (10:32)
[2021-02-23] MEDS: DOXAZOSIN 4 MG TABLET PO SCH (10:32)
[2021-02-23] MEDS: ISOSORBIDE MONONITRATE 30 MG TABLET PO SCH (10:32)
[2021-02-25] MEDS ORDERED: POLYETHYLENE GLYCOL POWDER 255 GM BOTTLE PO ONE (16:00)
[2021-02-26] MEDS ORDERED: MAGNESIUM CITRATE 300 ML BOTTLE PO ONE (06:00)
== END 2021-02-23 15:09 | disposition home or self-care (01) | DRG 378 ==
LOC: N.ED 16:01 → N.EDINP 19:30 → SUATTDRO 19:30 → N.3E 20:50
PROVIDERS: ADMIT Internal Medicine; ATTEND Internal Medicine

== ENCOUNTER 2021-03-05 13:19 | Inpatient (IN) ==
[2021-03-05 16:45] LABS: Basophils % 0.4 % (0.0-0.8); Eosinophils # 0.3 10*3/uL (0.0-0.87); Eosinophils % 3.6 % (0.00-10.9); Hemoglobin 8.7 GM/DL (12.0-16.0); Immature Granulocytes % 0.3 %; Immature Granulocytes Absolute 0.03 #; Lymphocytes # 1.1 10*3/uL (1.4-4.0); Lymphocytes % 11.8 % (21.3-54.2); Mean Corpuscular Volume 87.1 FL (87-102); Mean Platelet Volume 9.8 FL (9.6-12.0); Monocytes % 6.2 % (1.7-12.7); Neutrophils % 77.7 % (38.7-73.9); Platelet Count 316 T/CUMM (130-400); Red Blood Count 3.33 MC/CUMM (3.8-5.5); Red Cell Distribution Width 14.6 % (9.3-17.3); White Blood Count 9.4 T/CUMM (4-12)
[2021-03-05 17:03] LABS: Alanine Aminotransferase 18 U/L (13-56); Albumin 3.1 G/DL (3.4-5.0); Alkaline Phosphatase 99 U/L (45-117); Aspartate Amino Transferase 17 U/L (0-37); Bilirubin,Total < 0.39 MG/DL (0.20-1.00); Blood Urea Nitrogen 26 MG/DL (7-18); Calcium 9.2 MG/DL (8.5-10.1); Carbon Dioxide 25 MMOL/L (21-32); Estimated Glom Filtration Rate 73 ML/MIN; Glucose 60 MG/DL (74-106); Osmolality,Calculated 283.3 MOS/KG (273-304); Potassium 4.4 MMOL/L (3.5-5.1); Sodium 141 MMOL/L (136-145); Total Protein 7.9 G/DL (6.4-8.2)
[2021-03-05] MEDS ORDERED: ACETAMINOPHEN 325 MG TABLET PO PRN (17:49)
[2021-03-05] MEDS ORDERED: DOCUSATE SODIUM 100 MG CAPSULE PO PRN (17:49)
[2021-03-05] MEDS ORDERED: DEXTROSE 50% 25 GM/50 ML VIAL IV PRN ×2 (17:49)
[2021-03-05] MEDS ORDERED: traZODone 50 MG TABLET PO PRN (17:49)
[2021-03-05] MEDS ORDERED: GLUCAGON 1 MG VIAL IM PRN (17:49)
[2021-03-05] MEDS ORDERED: MORPHINE 2 MG/1 ML SYRINGE IV PRN (17:49)
[2021-03-05] MEDS ORDERED: LACTULOSE 20 GM/30 ML UDCUP PO PRN (17:49)
[2021-03-05] MEDS ORDERED: ONDANSETRON 4 MG/2 ML VIAL IV PRN (17:49)
[2021-03-05] MEDS ORDERED: ENOXAPARIN 40 MG/0.4 ML SYRINGE SUBCUT SCH (18:00)
[2021-03-05] MEDS ORDERED: PIPERACILLIN/TAZOBACTAM 3,375 MG in SODIUM CHLORIDE 0.9% 100 ML IV STA (18:34)
[2021-03-05] MEDS: VANCOMYCIN INJ 2,000 MG in SODIUM CHLORIDE 0.9% 500 ML IV SCH (22:02)
[2021-03-05] MEDS: SODIUM CHLORIDE 0.45% 1,000 ML IV SCH (22:03)
[2021-03-06] MEDS: INSULIN REGULAR 100 UNIT/ML SUBCUT SCH ×5 (00:39→21:26)
[2021-03-06] MEDS: PIPERACILLIN/TAZOBACTAM 3,375 MG in SODIUM CHLORIDE 0.9% 100 ML IV SCH ×2 (03:30→14:25)
[2021-03-06 05:46] LABS: Basophils # 0.1 10*3/uL (0.0-0.2); Basophils % 0.6 % (0.0-0.8); Eosinophils # 0.5 10*3/uL (0.0-0.87); Eosinophils % 6.2 % (0.00-10.9); Hematocrit 25.6 VOL% (35.7-47.0); Hemoglobin 7.9 GM/DL (12.0-16.0); Immature Granulocytes % 0.4 %; Immature Granulocytes Absolute 0.03 #; Lymphocytes # 1.5 10*3/uL (1.4-4.0); Lymphocytes % 19.1 % (21.3-54.2); Mean Corpuscular HGB Conc 30.9 GM/DL (32-36); Mean Corpuscular Volume 86.5 FL (87-102); Mean Platelet Volume 9.5 FL (9.6-12.0); Monocytes % 9.1 % (1.7-12.7); Neutrophils % 64.6 % (38.7-73.9); Platelet Count 252 T/CUMM (130-400); Red Blood Count 2.96 MC/CUMM (3.8-5.5); Red Cell Distribution Width 14.7 % (9.3-17.3); White Blood Count 8.1 T/CUMM (4-12)
[2021-03-06 06:10] LABS: Calcium 8.4 MG/DL (8.5-10.1); Osmolality,Calculated 291.8 MOS/KG (273-304); Potassium 4.5 MMOL/L (3.5-5.1)
[2021-03-06] MEDS ORDERED: ETOMIDATE 40 MG/20 ML VIAL IV ONE (08:44)
[2021-03-06] MEDS ORDERED: LIDOCAINE 2% 5 ML VIAL ONE (08:44)
[2021-03-06] MEDS ORDERED: SODIUM CHLORIDE 0.9% 100 ML IV ONE (08:44)
[2021-03-06] MEDS ORDERED: propofoL 200 MG/20 ML VIAL IV ONE ×2 (08:44→08:45)
[2021-03-06] MEDS ORDERED: MIDAZOLAM 2 MG/2 ML VIAL ONE (08:45)
[2021-03-06] MEDS ORDERED: fentaNYL 100 MCG/2 ML VIAL ONE (08:45)
[2021-03-06] MEDS ORDERED: LIDOCAINE 1% 20 ML VIAL ONE (08:56)
[2021-03-06] MEDS: SODIUM CHLORIDE 0.45% 1,000 ML IV SCH ×2 (09:06→20:07)
[2021-03-06] MEDS ORDERED: SODIUM CHLORIDE 0.9% 1,000 ML IV PRN (09:26)
[2021-03-06] MEDS: VANCOMYCIN INJ 2,000 MG in SODIUM CHLORIDE 0.9% 500 ML IV SCH ×2 (10:51→23:07)
[2021-03-06 15:28] LABS: % Iron Saturation 9.7 % (18-50); Ferritin 24.3 ng/ml (8-252); Folate 9.49 NG/ML (5.38-24.0)
[2021-03-06] MEDS: carvediloL 25 MG TABLET PO SCH (16:23)
[2021-03-06 19:33] LABS: Hematocrit 30.1 VOL% (35.7-47.0); Hemoglobin 8.8 GM/DL (12.0-16.0)
[2021-03-06] MEDS ORDERED: SIMVASTATIN 40 MG TABLET PO SCH (21:00)
[2021-03-06] MEDS: amLODIPine 5 MG TABLET PO SCH (21:26)
[2021-03-07] MEDS: SODIUM CHLORIDE 0.45% 1,000 ML IV SCH ×2 (00:10→04:31)
[2021-03-07] MEDS: PIPERACILLIN/TAZOBACTAM 3,375 MG in SODIUM CHLORIDE 0.9% 100 ML IV SCH ×2 (00:10→05:58)
[2021-03-07 06:11] LABS: Basophils # 0.1 10*3/uL (0.0-0.2); Basophils % 0.9 % (0.0-0.8); Eosinophils # 0.7 10*3/uL (0.0-0.87); Hematocrit 27.3 VOL% (35.7-47.0); Hemoglobin 8.3 GM/DL (12.0-16.0); Immature Granulocytes % 0.3 %; Immature Granulocytes Absolute 0.02 #; Lymphocytes # 1.7 10*3/uL (1.4-4.0); Lymphocytes % 22.2 % (21.3-54.2); Mean Corpuscular HGB Conc 30.4 GM/DL (32-36); Mean Corpuscular Volume 87.8 FL (87-102); Mean Platelet Volume 9.7 FL (9.6-12.0); Monocytes % 10.4 % (1.7-12.7); Neutrophils % 57.2 % (38.7-73.9); Platelet Count 254 T/CUMM (130-400); Red Blood Count 3.11 MC/CUMM (3.8-5.5); Red Cell Distribution Width 14.6 % (9.3-17.3); White Blood Count 7.6 T/CUMM (4-12)
[2021-03-07 06:35] LABS: Calcium 8.1 MG/DL (8.5-10.1); Osmolality,Calculated 287.1 MOS/KG (273-304); Potassium 4.4 MMOL/L (3.5-5.1)
[2021-03-07 06:41] LABS: Risk Ratio 2.04; VLDL Cholesterol 8.2 MG/DL
[2021-03-07] MEDS: INSULIN REGULAR 100 UNIT/ML SUBCUT SCH (06:50)
[2021-03-07] MEDS: amLODIPine 5 MG TABLET PO SCH (08:01)
[2021-03-07] MEDS: carvediloL 25 MG TABLET PO SCH (08:01)
[2021-03-07 11:21] VITALS: BP 167/81
[2021-03-10] MEDS ORDERED: ERGOCALCIFEROL 50,000 UNIT CAPSULE PO SCH (09:00)
== END 2021-03-07 14:01 | disposition home or self-care (01) | DRG 264 ==
LOC: N.ED 13:19 → N.EDINP 17:39 → N.5E 20:25
PROVIDERS: ADMIT Internal Medicine; ATTEND Internal Medicine

== ENCOUNTER 2021-03-20 11:41 | Observation (INO) ==
[2021-03-20] MEDS ORDERED: ALBUTEROL/IPRATROPIUM 3 ML NEB RESP TX STA (14:10)
[2021-03-20] MEDS ORDERED: FUROSEMIDE 100 MG/10 ML VIAL IV STA (14:10)
[2021-03-20 14:27] LABS: Basophils % 0.4 % (0.0-0.8); Eosinophils # 0.4 10*3/uL (0.0-0.87); Eosinophils % 3.4 % (0.00-10.9); Hematocrit 28.8 VOL% (35.7-47.0); Hemoglobin 8.7 GM/DL (12.0-16.0); Immature Granulocytes % 0.6 %; Immature Granulocytes Absolute 0.06 #; Lymphocytes # 1.3 10*3/uL (1.4-4.0); Lymphocytes % 12.2 % (21.3-54.2); Mean Corpuscular HGB Conc 30.2 GM/DL (32-36); Mean Corpuscular Volume 87.3 FL (87-102); Mean Platelet Volume 10.3 FL (9.6-12.0); Monocytes % 9.4 % (1.7-12.7); Platelet Count 326 T/CUMM (130-400); Red Cell Distribution Width 15.7 % (9.3-17.3); White Blood Count 10.3 T/CUMM (4-12)
[2021-03-20 14:32] LABS: Alanine Aminotransferase 35 U/L (13-56); Albumin 3.2 G/DL (3.4-5.0); Alkaline Phosphatase 113 U/L (45-117); Aspartate Amino Transferase 29 U/L (0-37); Bilirubin,Total < 0.39 MG/DL (0.20-1.00); Blood Urea Nitrogen 46 MG/DL (7-18); Calcium 9.2 MG/DL (8.5-10.1); Carbon Dioxide 25 MMOL/L (21-32); Estimated Glom Filtration Rate 52 ML/MIN; Glucose 74 MG/DL (74-106); Osmolality,Calculated 293.1 MOS/KG (273-304); Potassium 4.9 MMOL/L (3.5-5.1); Sodium 142 MMOL/L (136-145); Total Protein 8.3 G/DL (6.4-8.2)
[2021-03-20 14:50] LABS: Bacteria,Urine Occasional /HPF (Few); Bilirubin,Urine Negative (Negative); Blood, Urine Negative (Negative); Glucose,Urine (UA) Negative (Negative); Hyaline Casts,Urine 9 /LPF (0-3); Ketones,Urine Negative (Negative); Mucus,Urine Occasional /LPF (Occasional); Nitrite,Urine Negative (Negative); Protein,Urine Negative; RBC,Urine 2 /HPF (0-4); Squamous Epithelial Cell,Urine Occasional /HPF (0-10); Urine Appearance CLEAR (Clear); Urine Color Yellow (Yellow); Urine Specific Gravity 1.009 (1.001-1.035); Urine Urobilinogen < 2.0 EU/DL (0.2-1.0)
[2021-03-20] MEDS ORDERED: ALBUTEROL 2.5 MG/3 ML NEB RESP TX STA (15:41)
[2021-03-20] MEDS ORDERED: GLUCAGON 1 MG VIAL IM PRN ×2 (16:33→16:38)
[2021-03-20] MEDS ORDERED: DEXTROSE 50% 25 GM/50 ML VIAL IV PRN ×2 (16:33→16:38)
[2021-03-20 16:37] LABS: Ferritin 26.7 ng/ml (8-252)
[2021-03-20] MEDS ORDERED: ACETAMINOPHEN 325 MG TABLET PO PRN (16:38)
[2021-03-20] MEDS ORDERED: MAGNESIUM SULF RIDER 4 GM/100 ML PREMIX IV PRN (16:38)
[2021-03-20] MEDS ORDERED: ZALEPLON 5 MG CAPSULE PO PRN (16:38)
[2021-03-20] MEDS ORDERED: ONDANSETRON 4 MG/2 ML VIAL IV PRN (16:38)
[2021-03-20] MEDS ORDERED: MAGNESIUM SULF RIDER 2 GM/50 ML PREMIX IV PRN (16:38)
[2021-03-20] MEDS ORDERED: APIXABAN 5 MG TABLET PO SCH (21:00)
[2021-03-20] MEDS: APIXABAN 5 MG TABLET PO SCH (21:09)
[2021-03-21] MEDS: INSULIN REGULAR 100 UNIT/ML SUBCUT SCH ×5 (01:20→20:36)
[2021-03-21 05:47] LABS: Basophils # 0.1 10*3/uL (0.0-0.2); Basophils % 0.6 % (0.0-0.8); Eosinophils # 0.4 10*3/uL (0.0-0.87); Eosinophils % 4.8 % (0.00-10.9); Hematocrit 25.9 VOL% (35.7-47.0); Hemoglobin 7.7 GM/DL (12.0-16.0); Immature Granulocytes % 0.3 %; Immature Granulocytes Absolute 0.03 #; Lymphocytes # 1.6 10*3/uL (1.4-4.0); Mean Corpuscular HGB Conc 29.7 GM/DL (32-36); Mean Corpuscular Volume 87.5 FL (87-102); Mean Platelet Volume 10.2 FL (9.6-12.0); Monocytes % 10.5 % (1.7-12.7); Neutrophils % 65.8 % (38.7-73.9); Platelet Count 264 T/CUMM (130-400); Red Blood Count 2.96 MC/CUMM (3.8-5.5); Red Cell Distribution Width 15.6 % (9.3-17.3); White Blood Count 8.9 T/CUMM (4-12)
[2021-03-21 06:21] LABS: Alanine Aminotransferase 28 U/L (13-56); Albumin 2.7 G/DL (3.4-5.0); Alkaline Phosphatase 101 U/L (45-117); Aspartate Amino Transferase 22 U/L (0-37); Bilirubin,Total < 0.39 MG/DL (0.20-1.00); Blood Urea Nitrogen 46 MG/DL (7-18); Calcium 8.7 MG/DL (8.5-10.1); Carbon Dioxide 26 MMOL/L (21-32); Estimated Glom Filtration Rate 58 ML/MIN; Glucose 106 MG/DL (74-106); Osmolality,Calculated 294.1 MOS/KG (273-304); Potassium 4.5 MMOL/L (3.5-5.1); Sodium 142 MMOL/L (136-145); Total Protein 7.1 G/DL (6.4-8.2)
[2021-03-21] MEDS: PANTOPRAZOLE 40 MG TABLET PO SCH (08:44)
[2021-03-21] MEDS: APIXABAN 5 MG TABLET PO SCH ×2 (08:44→20:36)
[2021-03-21] MEDS: FUROSEMIDE 40 MG/4 ML VIAL IV SCH ×2 (08:44→17:07)
[2021-03-21] MEDS: carvediloL 25 MG TABLET PO SCH (20:36)
[2021-03-21] MEDS ORDERED: SIMVASTATIN 40 MG TABLET PO SCH (21:00)
[2021-03-22 06:12] LABS: Basophils % 0.5 % (0.0-0.8); Eosinophils # 0.4 10*3/uL (0.0-0.87); Eosinophils % 5.2 % (0.00-10.9); Hematocrit 27.7 VOL% (35.7-47.0); Hemoglobin 8.2 GM/DL (12.0-16.0); Immature Granulocytes % 0.5 %; Immature Granulocytes Absolute 0.04 #; Lymphocytes # 1.8 10*3/uL (1.4-4.0); Lymphocytes % 24.2 % (21.3-54.2); Mean Corpuscular HGB Conc 29.6 GM/DL (32-36); Mean Corpuscular Volume 87.4 FL (87-102); Mean Platelet Volume 9.6 FL (9.6-12.0); Monocytes % 9.3 % (1.7-12.7); Neutrophils % 60.3 % (38.7-73.9); Platelet Count 278 T/CUMM (130-400); Red Blood Count 3.17 MC/CUMM (3.8-5.5); Red Cell Distribution Width 15.2 % (9.3-17.3); White Blood Count 7.3 T/CUMM (4-12)
[2021-03-22 06:39] LABS: Calcium 8.7 MG/DL (8.5-10.1); Osmolality,Calculated 293.1 MOS/KG (273-304); Potassium 4.3 MMOL/L (3.5-5.1)
[2021-03-22 06:55] LABS: Platelet Estimate Normal
[2021-03-22 06:56] LABS: Anisocytosis 2+; Spherocytes Few
[2021-03-22] MEDS: INSULIN REGULAR 100 UNIT/ML SUBCUT SCH ×2 (07:37→12:13)
[2021-03-22] MEDS: PANTOPRAZOLE 40 MG TABLET PO SCH (08:02)
[2021-03-22] MEDS: APIXABAN 5 MG TABLET PO SCH (08:02)
[2021-03-22] MEDS: FUROSEMIDE 40 MG/4 ML VIAL IV SCH (08:02)
[2021-03-22] MEDS: carvediloL 25 MG TABLET PO SCH (08:03)
[2021-03-22] MEDS ORDERED: ISOSORBIDE MONONITRATE 30 MG TABLET PO SCH (09:00)
[2021-03-22] MEDS ORDERED: FERROUS SULFATE 325 MG TABLET PO SCH (09:00)
[2021-03-22] MEDS ORDERED: ASPIRIN CHEW 81 MG TABLET PO SCH (09:00)
[2021-03-22 12:04] VITALS: BP 141/61
== END 2021-03-22 13:53 | disposition home health service (06) ==
LOC: N.EDINP 11:41 → N.ED 11:41 → SUATTDRO 16:38 → N.5E 17:29
PROVIDERS: ADMIT Internal Medicine; ATTEND Internal Medicine

== ENCOUNTER 2021-03-28 20:19 | Inpatient (IN) ==
[2021-03-28] MEDS ORDERED: FUROSEMIDE 100 MG/10 ML VIAL IV STA (21:15)
[2021-03-28 22:51] LABS: Basophils # 0.1 10*3/uL (0.0-0.2); Basophils % 0.5 % (0.0-0.8); Eosinophils # 0.4 10*3/uL (0.0-0.87); Eosinophils % 4.2 % (0.00-10.9); Hemoglobin 7.7 GM/DL (12.0-16.0); Immature Granulocytes % 0.5 %; Immature Granulocytes Absolute 0.05 #; Lymphocytes # 1.2 10*3/uL (1.4-4.0); Lymphocytes % 11.7 % (21.3-54.2); Mean Corpuscular HGB Conc 29.6 GM/DL (32-36); Mean Corpuscular Volume 87.5 FL (87-102); Mean Platelet Volume 9.5 FL (9.6-12.0); Monocytes % 8.3 % (1.7-12.7); Neutrophils % 74.8 % (38.7-73.9); Platelet Count 276 T/CUMM (130-400); Red Blood Count 2.97 MC/CUMM (3.8-5.5); Red Cell Distribution Width 15.8 % (9.3-17.3); White Blood Count 10.2 T/CUMM (4-12)
[2021-03-28 23:01] LABS: PT Patient Result 11.6 SECS (10.5-12.0)
[2021-03-28 23:04] LABS: Alanine Aminotransferase 18 U/L (13-56); Albumin 3.1 G/DL (3.4-5.0); Alkaline Phosphatase 104 U/L (45-117); Aspartate Amino Transferase 15 U/L (0-37); Bilirubin,Total < 0.39 MG/DL (0.20-1.00); Blood Urea Nitrogen 62 MG/DL (7-18); Carbon Dioxide 28 MMOL/L (21-32); Estimated Glom Filtration Rate 39 ML/MIN; Glucose 133 MG/DL (74-106); Osmolality,Calculated 300.3 MOS/KG (273-304); Potassium 4.3 MMOL/L (3.5-5.1); Sodium 141 MMOL/L (136-145); Total Protein 7.8 G/DL (6.4-8.2)
[2021-03-29] MEDS ORDERED: BISACODYL 5 MG TABLET PO PRN (00:30)
[2021-03-29] MEDS ORDERED: ZALEPLON 5 MG CAPSULE PO PRN (00:30)
[2021-03-29] MEDS ORDERED: GLUCAGON 1 MG VIAL IM PRN ×2 (00:30)
[2021-03-29] MEDS ORDERED: ONDANSETRON 4 MG/2 ML VIAL IV PRN (00:30)
[2021-03-29] MEDS ORDERED: guaiFENesin/DM ER 600-30 MG TABLET PO PRN (00:30)
[2021-03-29] MEDS ORDERED: NICOTINE 21 MG/24 HR PATCH TRANSDERM PRN (00:30)
[2021-03-29] MEDS ORDERED: diphenhydrAMINE CAP 25 MG CAPSULE PO PRN (00:30)
[2021-03-29] MEDS ORDERED: DEXTROSE 50% 25 GM/50 ML VIAL IV PRN ×2 (00:30)
[2021-03-29] MEDS ORDERED: hydrALAZINE 20 MG/1 ML VIAL IV PRN (00:30)
[2021-03-29] MEDS: LEVOFLOXACIN INJ 750 MG/150 ML PREMIX IV SCH (02:57)
[2021-03-29 06:05] LABS: Basophils % 0.5 % (0.0-0.8); Eosinophils # 0.3 10*3/uL (0.0-0.87); Eosinophils % 4.1 % (0.00-10.9); Hematocrit 25.7 VOL% (35.7-47.0); Hemoglobin 7.6 GM/DL (12.0-16.0); Immature Granulocytes % 0.4 %; Immature Granulocytes Absolute 0.03 #; Lymphocytes # 0.7 10*3/uL (1.4-4.0); Lymphocytes % 8.6 % (21.3-54.2); Mean Corpuscular HGB Conc 29.6 GM/DL (32-36); Mean Corpuscular Volume 88.6 FL (87-102); Mean Platelet Volume 9.9 FL (9.6-12.0); Monocytes % 10.8 % (1.7-12.7); Neutrophils % 75.6 % (38.7-73.9); Platelet Count 270 T/CUMM (130-400); Red Cell Distribution Width 15.8 % (9.3-17.3); White Blood Count 8.4 T/CUMM (4-12)
[2021-03-29 06:28] LABS: Calcium 8.9 MG/DL (8.5-10.1); Potassium 4.5 MMOL/L (3.5-5.1)
[2021-03-29] MEDS: INSULIN LISPRO 100 UNIT/ML SUBCUT SCH ×4 (08:16→21:36)
[2021-03-29] MEDS: ISOSORBIDE MONONITRATE 30 MG TABLET PO SCH (09:34)
[2021-03-29] MEDS: amLODIPine 5 MG TABLET PO SCH ×2 (09:34→21:09)
[2021-03-29] MEDS: APIXABAN 2.5 MG TABLET PO SCH ×2 (09:34→21:36)
[2021-03-29] MEDS: carvediloL 25 MG TABLET PO SCH ×2 (09:34→17:11)
[2021-03-29] MEDS: FERROUS SULFATE 325 MG TABLET PO SCH (09:34)
[2021-03-29] MEDS: PANTOPRAZOLE 40 MG TABLET PO SCH (09:34)
[2021-03-29] MEDS: DOXAZOSIN 4 MG TABLET PO SCH (09:34)
[2021-03-29] MEDS ORDERED: SODIUM CHLORIDE 0.9% 1,000 ML IV PRN (11:15)
[2021-03-29] MEDS ORDERED: ERGOCALCIFEROL 50,000 UNIT CAPSULE PO SCH (16:30)
[2021-03-29 16:58] LABS: Hematocrit 26.3 VOL% (35.7-47.0); Hemoglobin 7.9 GM/DL (12.0-16.0)
[2021-03-29] MEDS: SIMVASTATIN 40 MG TABLET PO SCH (21:08)
[2021-03-30] MEDS: ASPIRIN CHEW 81 MG TABLET PO SCH (09:12)
[2021-03-30] MEDS: APIXABAN 2.5 MG TABLET PO SCH ×3 (09:12→22:07)
[2021-03-30] MEDS: amLODIPine 5 MG TABLET PO SCH (09:12)
[2021-03-30] MEDS: carvediloL 25 MG TABLET PO SCH ×2 (09:12→16:27)
[2021-03-30] MEDS: DOXAZOSIN 4 MG TABLET PO SCH (09:12)
[2021-03-30] MEDS: INSULIN LISPRO 100 UNIT/ML SUBCUT SCH ×4 (09:13→22:07)
[2021-03-30] MEDS: PANTOPRAZOLE 40 MG TABLET PO SCH (09:13)
[2021-03-30] MEDS: ISOSORBIDE MONONITRATE 30 MG TABLET PO SCH (09:13)
[2021-03-30] MEDS: FERROUS SULFATE 325 MG TABLET PO SCH (09:13)
[2021-03-30] MEDS: COLLAGENASE OINT 30 GM TUBE TOP SCH (13:00)
[2021-03-30] MEDS ORDERED: ALBUTEROL/IPRATROPIUM 3 ML NEB RESP TX SCH ×2 (13:31→19:00)
[2021-03-30] MEDS ORDERED: FUROSEMIDE 40 MG/4 ML VIAL IV ONE (17:34)
[2021-03-30] MEDS: CEFEPIME 1,000 MG in SODIUM CHLORIDE 0.9% 100 ML IV SCH (18:20)
[2021-03-30] MEDS: ACETAMINOPHEN 325 MG TABLET PO PRN (18:26)
[2021-03-30] MEDS: SIMVASTATIN 40 MG TABLET PO SCH (21:50)
[2021-03-31] MEDS: ACETAMINOPHEN 325 MG TABLET PO PRN ×3 (00:29→12:48)
[2021-03-31] MEDS ORDERED: OXYMETAZOLINE 0.05% NASAL SPRAY 15 ML BOTTLE BOTH NARES PRN (00:33)
[2021-03-31] MEDS: ALBUTEROL/IPRATROPIUM 3 ML NEB RESP TX SCH ×8 (00:34→23:05)
[2021-03-31] MEDS: LEVOFLOXACIN INJ 750 MG/150 ML PREMIX IV SCH (01:23)
[2021-03-31] MEDS: CEFEPIME 1,000 MG in SODIUM CHLORIDE 0.9% 100 ML IV SCH ×3 (02:38→17:31)
[2021-03-31 05:37] LABS: Basophils % 0.4 % (0.0-0.8); Hematocrit 26.8 VOL% (35.7-47.0); Hemoglobin 7.9 GM/DL (12.0-16.0); Immature Granulocytes % 0.7 %; Immature Granulocytes Absolute 0.06 #; Lymphocytes # 0.7 10*3/uL (1.4-4.0); Lymphocytes % 8.4 % (21.3-54.2); Mean Corpuscular HGB Conc 29.5 GM/DL (32-36); Mean Platelet Volume 9.7 FL (9.6-12.0); Monocytes % 11.3 % (1.7-12.7); Neutrophils % 79.2 % (38.7-73.9); Platelet Count 216 T/CUMM (130-400); Red Blood Count 3.01 MC/CUMM (3.8-5.5); Red Cell Distribution Width 15.7 % (9.3-17.3); White Blood Count 8.2 T/CUMM (4-12)
[2021-03-31 06:07] LABS: Calcium 8.4 MG/DL (8.5-10.1); Osmolality,Calculated 294.4 MOS/KG (273-304); Potassium 4.3 MMOL/L (3.5-5.1)
[2021-03-31] MEDS: INSULIN LISPRO 100 UNIT/ML SUBCUT SCH ×4 (07:46→20:54)
[2021-03-31] MEDS ORDERED: LIDOCAINE 1% 20 ML VIAL ONE (08:01)
[2021-03-31] MEDS: ISOSORBIDE MONONITRATE 30 MG TABLET PO SCH (08:17)
[2021-03-31] MEDS: DOXAZOSIN 4 MG TABLET PO SCH (08:17)
[2021-03-31] MEDS ORDERED: LIDOCAINE 2% 5 ML VIAL ONE (08:23)
[2021-03-31] MEDS ORDERED: propofoL 200 MG/20 ML VIAL IV ONE (08:23)
[2021-03-31] MEDS ORDERED: MIDAZOLAM 2 MG/2 ML VIAL ONE ×2 (08:23→23:30)
[2021-03-31] MEDS ORDERED: ETOMIDATE 40 MG/20 ML VIAL IV ONE (08:23)
[2021-03-31] MEDS ORDERED: fentaNYL 100 MCG/2 ML VIAL ONE (08:23)
[2021-03-31] MEDS: APIXABAN 2.5 MG TABLET PO SCH (09:13)
[2021-03-31] MEDS: SPIRONOLACTONE 25 MG TABLET PO SCH (09:13)
[2021-03-31] MEDS: ASPIRIN CHEW 81 MG TABLET PO SCH (09:13)
[2021-03-31] MEDS: FERROUS SULFATE 325 MG TABLET PO SCH (09:13)
[2021-03-31] MEDS: PANTOPRAZOLE 40 MG TABLET PO SCH (09:13)
[2021-03-31] MEDS: COLLAGENASE OINT 30 GM TUBE TOP SCH (09:14)
[2021-03-31] MEDS ORDERED: SODIUM CHLORIDE 0.9% 250 ML IV SCH (09:30)
[2021-03-31] MEDS: FUROSEMIDE 40 MG/4 ML VIAL IV SCH ×2 (09:33→15:50)
[2021-03-31] MEDS ORDERED: FUROSEMIDE 40 MG/4 ML VIAL IV ONE (14:32)
[2021-03-31] MEDS ORDERED: IBUPROFEN 200 MG TABLET PO PRN (14:44)
[2021-03-31] MEDS ORDERED: ENOXAPARIN 60 MG/0.6 ML SYRINGE SUBCUT SCH (15:00)
[2021-03-31 15:32] LABS: ABG HCO3 24.4 MMOL/L (20-26); ABG Oxygen Saturation 98.7 % (95-100); ABG PCO2 52.9 MM HG (35-48); ABG PH 7.311 (7.35-7.45); ABG TCO2 24.9 MMOL/L (23-27)
[2021-03-31] MEDS: CLINDAMYCIN INJ 600 MG/50 ML PREMIX IV SCH ×2 (15:50→23:45)
[2021-03-31] MEDS ORDERED: IBUPROFEN 600 MG TABLET PO PRN (19:00)
[2021-03-31] MEDS ORDERED: IBUPROFEN 400 MG TABLET PO PRN (19:00)
[2021-03-31] MEDS: SIMVASTATIN 40 MG TABLET PO SCH (20:53)
[2021-03-31] MEDS ORDERED: SODIUM BICARBONATE 50 MEQ/50 ML VIAL IV ONE (22:30)
[2021-03-31 22:58] LABS: Basophils % 0.3 % (0.0-0.8); Hematocrit 26.6 VOL% (35.7-47.0); Hemoglobin 7.9 GM/DL (12.0-16.0); Immature Granulocytes % 0.8 %; Immature Granulocytes Absolute 0.07 #; Lymphocytes % 11.1 % (21.3-54.2); Mean Corpuscular HGB Conc 29.7 GM/DL (32-36); Mean Corpuscular Volume 89.3 FL (87-102); Mean Platelet Volume 9.7 FL (9.6-12.0); Monocytes % 5.4 % (1.7-12.7); Neutrophils % 82.4 % (38.7-73.9); Platelet Count 183 T/CUMM (130-400); Red Blood Count 2.98 MC/CUMM (3.8-5.5); Red Cell Distribution Width 15.4 % (9.3-17.3); White Blood Count 9.2 T/CUMM (4-12)
[2021-03-31 23:04] LABS: Bacteria,Urine Occasional /HPF (Few); Bilirubin,Urine Negative (Negative); Blood, Urine Negative (Negative); Glucose,Urine (UA) 50 mg/dL (Negative); Ketones,Urine Negative (Negative); Mucus,Urine Few /LPF (Occasional); Nitrite,Urine Negative (Negative); Protein,Urine 100 MG/DL; RBC,Urine 12 /HPF (0-4); Squamous Epithelial Cell,Urine Occasional /HPF (0-10); Urine Appearance CLOUDY (Clear); Urine Color Yellow (Yellow); Urine Specific Gravity 1.009 (1.001-1.035); Urine Urobilinogen < 2.0 EU/DL (0.2-1.0)
[2021-03-31 23:24] LABS: Albumin 2.7 G/DL (3.4-5.0); Bilirubin,Total 0.5 MG/DL (0.20-1.00); Calcium 7.7 MG/DL (8.5-10.1); Osmolality,Calculated 296.5 MOS/KG (273-304); Potassium 4.8 MMOL/L (3.5-5.1); Total Protein 6.8 G/DL (6.4-8.2)
[2021-03-31 23:32] LABS: ABG Base Excess -0.4 MMOL/L (-2.5-2.5); ABG HCO3 24.1 MMOL/L (20-26); ABG PH 7.342 (7.35-7.45)
[2021-03-31] MEDS ORDERED: MIDAZOLAM 2 MG/2 ML VIAL IV STA (23:34)
[2021-03-31] MEDS ORDERED: NOREPINEPHRINE 8 MG in SODIUM CHLORIDE 0.9% 242 ML IV PRN (23:52)
[2021-04-01] MEDS: CEFEPIME 1,000 MG in SODIUM CHLORIDE 0.9% 100 ML IV SCH ×3 (01:43→18:08)
[2021-04-01] MEDS: ALBUTEROL/IPRATROPIUM 3 ML NEB RESP TX SCH ×5 (03:25→19:45)
[2021-04-01 05:10] LABS: ABG Base Excess -0.4 MMOL/L (-2.5-2.5); ABG Oxygen Saturation 87.8 % (95-100); ABG PCO2 41.7 MM HG (35-48); ABG PH 7.381 (7.35-7.45); ABG PO2 57.7 MM HG (80-95); ABG TCO2 23.1 MMOL/L (23-27)
[2021-04-01 05:30] LABS: Basophils % 0.2 % (0.0-0.8); Hematocrit 26.1 VOL% (35.7-47.0); Hemoglobin 7.9 GM/DL (12.0-16.0); Immature Granulocytes % 0.5 %; Immature Granulocytes Absolute 0.05 #; Lymphocytes # 0.3 10*3/uL (1.4-4.0); Lymphocytes % 3.3 % (21.3-54.2); Mean Corpuscular HGB Conc 30.3 GM/DL (32-36); Mean Corpuscular Volume 88.5 FL (87-102); Mean Platelet Volume 9.9 FL (9.6-12.0); Monocytes % 2.5 % (1.7-12.7); Neutrophils % 93.5 % (38.7-73.9); Platelet Count 166 T/CUMM (130-400); Red Blood Count 2.95 MC/CUMM (3.8-5.5); Red Cell Distribution Width 15.4 % (9.3-17.3); White Blood Count 10.2 T/CUMM (4-12)
[2021-04-01] MEDS ORDERED: ENOXAPARIN 120 MG/0.8 ML SYRINGE SUBCUT SCH (05:30)
[2021-04-01 05:49] LABS: Calcium 8.2 MG/DL (8.5-10.1); Osmolality,Calculated 295.8 MOS/KG (273-304); Potassium 3.8 MMOL/L (3.5-5.1)
[2021-04-01 05:54] LABS: Band Neutrophils 4 % (0-10); Hypochromasia 1+; Lymphocytes 2 % (20-55); Platelet Estimate Normal; Segmented Neutrophils 92 % (50-85); Total Cells Counted 100
[2021-04-01] MEDS: CLINDAMYCIN INJ 600 MG/50 ML PREMIX IV SCH ×3 (06:09→23:57)
[2021-04-01] MEDS ORDERED: POTASSIUM BICARB EFFERVESCENT 20 MEQ TAB.EFF PO PRN (07:52)
[2021-04-01] MEDS: INSULIN LISPRO 100 UNIT/ML SUBCUT SCH ×3 (08:22→18:03)
[2021-04-01] MEDS: FUROSEMIDE 40 MG/4 ML VIAL IV SCH ×2 (08:46→15:50)
[2021-04-01] MEDS ORDERED: PANTOPRAZOLE 40 MG VIAL IV SCH (09:00)
[2021-04-01] MEDS: ISOSORBIDE MONONITRATE 30 MG TABLET PO SCH (10:02)
[2021-04-01] MEDS: DOXAZOSIN 4 MG TABLET PO SCH (10:02)
[2021-04-01] MEDS: SPIRONOLACTONE 25 MG TABLET PO SCH (10:02)
[2021-04-01] MEDS: ASPIRIN CHEW 81 MG TABLET PO SCH (10:02)
[2021-04-01] MEDS: FERROUS SULFATE 325 MG TABLET PO SCH (10:02)
[2021-04-01] MEDS: COLLAGENASE OINT 30 GM TUBE TOP SCH (10:03)
[2021-04-01] MEDS ORDERED: MELATONIN 3 MG TABLET PO PRN (18:24)
[2021-04-01] MEDS ORDERED: AZITHROMYCIN INJ 500 MG in SODIUM CHLORIDE 0.9% 250 ML IV ONE ×2 (18:24→20:00)
[2021-04-01] MEDS: ASCORBIC ACID 500 MG TABLET PO SCH (20:19)
[2021-04-01] MEDS: SIMVASTATIN 40 MG TABLET PO SCH (20:19)
[2021-04-01] MEDS ORDERED: FAMOTIDINE 20 MG TABLET PO SCH (21:00)
[2021-04-02] MEDS ORDERED: NOREPINEPHRINE 8 MG in SODIUM CHLORIDE 0.9% 242 ML IV PRN (00:07)
[2021-04-02] MEDS ORDERED: NOREPINEPHRINE 4 MG/4 ML VIAL IV ONE (00:10)
[2021-04-02] MEDS: INSULIN LISPRO 100 UNIT/ML SUBCUT SCH ×4 (00:23→18:18)
[2021-04-02] MEDS: ROCURONIUM 500 MG in SODIUM CHLORIDE 0.9% 500 ML IV PRN ×2 (00:35→08:43)
[2021-04-02] MEDS: ALBUTEROL INHALER 18 GM INH SCH ×4 (01:04→18:15)
[2021-04-02] MEDS: CEFEPIME 1,000 MG in SODIUM CHLORIDE 0.9% 100 ML IV SCH ×3 (02:12→18:27)
[2021-04-02 04:52] LABS: ABG Base Excess -0.2 MMOL/L (-2.5-2.5); ABG HCO3 24.7 MMOL/L (20-26); ABG PCO2 41.4 MM HG (35-48); ABG PH 7.393 (7.35-7.45); ABG PO2 66.4 MM HG (80-95); ABG TCO2 25.9 MMOL/L (23-27)
[2021-04-02 05:49] LABS: Basophils % 0.1 % (0.0-0.8); Hematocrit 27.2 VOL% (35.7-47.0); Hemoglobin 8.2 GM/DL (12.0-16.0); Immature Granulocytes % 1.8 %; Immature Granulocytes Absolute 0.25 #; Lymphocytes # 0.3 10*3/uL (1.4-4.0); Lymphocytes % 2.4 % (21.3-54.2); Mean Corpuscular HGB Conc 30.1 GM/DL (32-36); Mean Corpuscular Volume 86.9 FL (87-102); Mean Platelet Volume 10.1 FL (9.6-12.0); Neutrophils % 94.7 % (38.7-73.9); Platelet Count 176 T/CUMM (130-400); Red Blood Count 3.13 MC/CUMM (3.8-5.5); Red Cell Distribution Width 15.5 % (9.3-17.3)
[2021-04-02 06:03] LABS: Osmolality,Calculated 304.7 MOS/KG (273-304); Potassium 3.8 MMOL/L (3.5-5.1)
[2021-04-02 06:10] LABS: Band Neutrophils 2 % (0-10); Platelet Estimate Adequate; Segmented Neutrophils 97 % (50-85); Total Cells Counted 100
[2021-04-02 06:11] LABS: Hypochromasia 1+; Microcytosis 1+
[2021-04-02] MEDS: ENOXAPARIN 120 MG/0.8 ML SYRINGE SUBCUT SCH (06:49)
[2021-04-02] MEDS: CLINDAMYCIN INJ 600 MG/50 ML PREMIX IV SCH ×3 (06:56→23:14)
[2021-04-02] MEDS: COLLAGENASE OINT 30 GM TUBE TOP SCH (08:30)
[2021-04-02] MEDS: DOXAZOSIN 4 MG TABLET PO SCH (08:30)
[2021-04-02] MEDS: FUROSEMIDE 40 MG/4 ML VIAL IV SCH ×2 (08:58→16:10)
[2021-04-02] MEDS: DEXAMETHASONE 4 MG/1 ML VIAL IV SCH (08:58)
[2021-04-02] MEDS: FERROUS SULFATE 325 MG TABLET PO SCH (09:43)
[2021-04-02] MEDS: ISOSORBIDE MONONITRATE 30 MG TABLET PO SCH (09:43)
[2021-04-02] MEDS: AZITHROMYCIN 250 MG TABLET PO SCH (09:43)
[2021-04-02] MEDS: CHOLECALCIFEROL 1,000 UNIT TABLET PO SCH (09:43)
[2021-04-02] MEDS: CETIRIZINE 10 MG TABLET PO SCH (09:43)
[2021-04-02] MEDS: ASCORBIC ACID 500 MG TABLET PO SCH ×2 (09:44→21:49)
[2021-04-02] MEDS: ZINC GLUCONATE 50 MG TABLET PO SCH (09:44)
[2021-04-02] MEDS: SPIRONOLACTONE 25 MG TABLET PO SCH (09:44)
[2021-04-02] MEDS: FAMOTIDINE 20 MG TABLET PO SCH (09:44)
[2021-04-02] MEDS: ASPIRIN CHEW 81 MG TABLET PO SCH (09:44)
[2021-04-02] MEDS ORDERED: INSULIN GLARGINE 100 UNIT/ML SUBCUT SCH (10:00)
[2021-04-02] MEDS: NOREPINEPHRINE 16 MG in SODIUM CHLORIDE 0.9% 234 ML IV PRN (10:45)
[2021-04-02] MEDS: ROCURONIUM 1,000 MG in SODIUM CHLORIDE 0.9% 175 ML IV PRN (16:40)
[2021-04-02] MEDS: MIDAZOLAM 100 MG in SODIUM CHLORIDE 0.9% 80 ML IV PRN (17:07)
[2021-04-02] MEDS: SIMVASTATIN 40 MG TABLET PO SCH (21:49)
[2021-04-03] MEDS: INSULIN LISPRO 100 UNIT/ML SUBCUT SCH ×4 (00:43→17:35)
[2021-04-03] MEDS: ALBUTEROL INHALER 18 GM INH SCH ×4 (01:51→18:39)
[2021-04-03] MEDS: CEFEPIME 1,000 MG in SODIUM CHLORIDE 0.9% 100 ML IV SCH ×2 (02:51→15:47)
[2021-04-03] MEDS: NOREPINEPHRINE 16 MG in SODIUM CHLORIDE 0.9% 234 ML IV PRN (03:48)
[2021-04-03] MEDS: ROCURONIUM 1,000 MG in SODIUM CHLORIDE 0.9% 175 ML IV PRN (04:02)
[2021-04-03 05:24] LABS: Basophils % 0.1 % (0.0-0.8); Hematocrit 25.1 VOL% (35.7-47.0); Hemoglobin 7.6 GM/DL (12.0-16.0); Immature Granulocytes % 1.3 %; Immature Granulocytes Absolute 0.19 #; Lymphocytes # 0.4 10*3/uL (1.4-4.0); Lymphocytes % 2.5 % (21.3-54.2); Mean Corpuscular HGB Conc 30.3 GM/DL (32-36); Mean Corpuscular Volume 88.1 FL (87-102); Mean Platelet Volume 10.9 FL (9.6-12.0); Monocytes % 0.7 % (1.7-12.7); Neutrophils % 95.4 % (38.7-73.9); Platelet Count 169 T/CUMM (130-400); Red Blood Count 2.85 MC/CUMM (3.8-5.5); Red Cell Distribution Width 15.7 % (9.3-17.3); White Blood Count 14.8 T/CUMM (4-12)
[2021-04-03 05:53] LABS: Lymphocytes 1 % (20-55); Platelet Estimate Adequate; Segmented Neutrophils 97 % (50-85); Total Cells Counted 100
[2021-04-03 05:54] LABS: Hypochromasia 1+; Microcytosis 1+; Ovalocytes Slight
[2021-04-03 06:06] LABS: Calcium 7.7 MG/DL (8.5-10.1); Potassium 4.5 MMOL/L (3.5-5.1)
[2021-04-03] MEDS: ENOXAPARIN 120 MG/0.8 ML SYRINGE SUBCUT SCH (06:14)
[2021-04-03] MEDS: CLINDAMYCIN INJ 600 MG/50 ML PREMIX IV SCH ×3 (06:14→23:17)
[2021-04-03] MEDS: FAMOTIDINE 20 MG TABLET PO SCH (08:36)
[2021-04-03] MEDS: ZINC GLUCONATE 50 MG TABLET PO SCH (08:36)
[2021-04-03] MEDS: CHOLECALCIFEROL 1,000 UNIT TABLET PO SCH (08:36)
[2021-04-03] MEDS: CETIRIZINE 10 MG TABLET PO SCH (08:36)
[2021-04-03] MEDS: ASPIRIN CHEW 81 MG TABLET PO SCH (08:36)
[2021-04-03] MEDS: FERROUS SULFATE 325 MG TABLET PO SCH (08:36)
[2021-04-03] MEDS: AZITHROMYCIN 250 MG TABLET PO SCH (08:36)
[2021-04-03] MEDS: ASCORBIC ACID 500 MG TABLET PO SCH ×2 (08:36→20:27)
[2021-04-03] MEDS: DEXAMETHASONE 4 MG/1 ML VIAL IV SCH (08:36)
[2021-04-03] MEDS ORDERED: INSULIN GLARGINE 100 UNIT/ML SUBCUT SCH (09:00)
[2021-04-03 09:27] LABS: ABG HCO3 21.5 MMOL/L (20-26); ABG PCO2 49.8 MM HG (35-48); ABG PH 7.253 (7.35-7.45); ABG PO2 74.1 MM HG (80-95)
[2021-04-03] MEDS: FUROSEMIDE 40 MG/4 ML VIAL IV SCH ×2 (09:31→15:47)
[2021-04-03] MEDS: SPIRONOLACTONE 25 MG TABLET PO SCH (09:33)
[2021-04-03] MEDS: DOXAZOSIN 4 MG TABLET PO SCH (09:34)
[2021-04-03] MEDS: METOCLOPRAMIDE 10 MG/2 ML VIAL IV SCH ×3 (09:35→20:36)
[2021-04-03] MEDS: ISOSORBIDE MONONITRATE 30 MG TABLET PO SCH (09:35)
[2021-04-03] MEDS: COLLAGENASE OINT 30 GM TUBE TOP SCH (09:35)
[2021-04-03 13:53] VITALS: BP 91/53
[2021-04-03] MEDS: MIDAZOLAM 100 MG in SODIUM CHLORIDE 0.9% 80 ML IV PRN (15:55)
[2021-04-03] MEDS: SIMVASTATIN 40 MG TABLET PO SCH (20:28)
[2021-04-03 22:13] LABS: Hematocrit 27.1 VOL% (35.7-47.0); Hemoglobin 8.2 GM/DL (12.0-16.0)
[2021-04-03] MEDS: MORPHINE 2 MG/1 ML SYRINGE IV PRN (22:49)
[2021-04-03] MEDS: fentaNYL INJ 1,250 MCG in SODIUM CHLORIDE 0.9% 225 ML IV PRN (23:37)
[2021-04-04] MEDS: INSULIN LISPRO 100 UNIT/ML SUBCUT SCH (00:19)
[2021-04-04] MEDS: ALBUTEROL INHALER 18 GM INH SCH (00:22)
[2021-04-04] MEDS: CEFEPIME 1,000 MG in SODIUM CHLORIDE 0.9% 100 ML IV SCH (02:37)
[2021-04-04] MEDS: METOCLOPRAMIDE 10 MG/2 ML VIAL IV SCH (02:39)
[2021-04-04 02:46] LABS: ABG Base Excess -8.6 MMOL/L (-2.5-2.5); ABG HCO3 20.1 MMOL/L (20-26); ABG Oxygen Saturation 83.4 % (95-100); ABG PCO2 57.7 MM HG (35-48); ABG PO2 57.3 MM HG (80-95); ABG TCO2 21.8 MMOL/L (23-27)
[2021-04-04] MEDS: MIDAZOLAM 100 MG in SODIUM CHLORIDE 0.9% 80 ML IV PRN (02:49)
[2021-04-04] MEDS: NOREPINEPHRINE 16 MG in SODIUM CHLORIDE 0.9% 234 ML IV PRN (02:50)
[2021-04-04 03:15] LABS: ABG PH 7.159 (7.35-7.45)
[2021-04-04 04:13] LABS: Basophils % 0.1 % (0.0-0.8); Hematocrit 28.2 VOL% (35.7-47.0); Hemoglobin 8.4 GM/DL (12.0-16.0); Lymphocytes # 0.9 10*3/uL (1.4-4.0); Lymphocytes % 4.3 % (21.3-54.2); Mean Corpuscular HGB Conc 29.8 GM/DL (32-36); Mean Corpuscular Volume 90.1 FL (87-102); Mean Platelet Volume 10.9 FL (9.6-12.0); Monocytes % 0.9 % (1.7-12.7); NRBC # 0.11 10*3/uL; Neutrophils % 93.7 % (38.7-73.9); Platelet Count 196 T/CUMM (130-400); Red Blood Count 3.13 MC/CUMM (3.8-5.5); Red Cell Distribution Width 16.1 % (9.3-17.3)
[2021-04-04 04:38] LABS: Band Neutrophils 1 % (0-10); Hypochromasia 1+; Lymphocytes 4 % (20-55); Microcytosis 1+; Nucleated Red Blood Cells 1 (0-5); Platelet Estimate Adequate; Segmented Neutrophils 94 % (50-85); Total Cells Counted 100
[2021-04-04] MEDS: ROCURONIUM 1,000 MG in SODIUM CHLORIDE 0.9% 175 ML IV PRN (04:56)
[2021-04-04] MEDS: fentaNYL INJ 1,250 MCG in SODIUM CHLORIDE 0.9% 225 ML IV PRN (05:02)
[2021-04-04 05:16] LABS: Calcium 7.4 MG/DL (8.5-10.1); Osmolality,Calculated 311.8 MOS/KG (273-304); Potassium 5.4 MMOL/L (3.5-5.1)
[2021-04-04] MEDS ORDERED: SODIUM BICARBONATE 50 MEQ/50 ML SYRINGE IV ONE ×2 (05:31→06:09)
[2021-04-04] MEDS ORDERED: CALCIUM CHLORIDE 1,000 MG/10 ML SYRINGE IV ONE (05:31)
[2021-04-04] MEDS ORDERED: EPINEPHrine 1 MG/10 ML SYRINGE ONE ×2 (05:31→06:09)
[2021-04-04] MEDS ORDERED: AMIODARONE 150 MG/3 ML VIAL ONE (05:31)
[2021-04-04] MEDS ORDERED: DEXTROSE 50% 25 GM/50 ML SYRINGE IV ONE (05:31)
[2021-04-04] MEDS ORDERED: FUROSEMIDE 40 MG/4 ML VIAL IV SCH (05:50)
[2021-04-04] MEDS ORDERED: FUROSEMIDE 40 MG/4 ML VIAL IV ONE ×2 (05:50→06:24)
[2021-04-04] MEDS ORDERED: AMIODARONE INJ 450 MG in DEXTROSE 5% 241 ML IV SCH (05:51)
[2021-04-04] MEDS: MORPHINE 2 MG/1 ML SYRINGE IV PRN (06:24)
== END 2021-04-04 06:43 | disposition expired | DRG 137 ==
LOC: EDBD → EDUNIT# → N.ED 20:19 → INTOOBSV 03-29 00:30 → N.3E 03-29 00:30 → SUATTDRO 03-30 16:59 → N.ICU 03-31 22:38
PROVIDERS: ADMIT Hospitalist; ATTEND Family Medicine